=== PATIENT | female | born 1940 | race Caucasian/White ===

== ENCOUNTER 2019-05-05 14:56 | Emergency (ER) | payer MEDICARE ==
[2019-05-05] MEDS ORDERED: XYLOCAINE 1%/Epi 1:100000 MDV 20 ML IJ ONE (14:57)
[2019-05-05] MEDS ORDERED: Sodium Chloride 0.9% 1000 ML 1,000 ML IV ONE (14:57)
[2019-05-05] MEDS ORDERED: Zofran 4 MG/2 ML VIAL ONE (15:07)
[2019-05-05] MEDS ORDERED: Zofran 4 MG/2 ML VIAL IV ONE (15:14)
[2019-05-05 15:48] LABS: INR 1.06 (0.8-3.0)
[2019-05-05 15:51] LABS: ALBUMIN 4.4 g/dL (3.5-5.0); ANION GAP 16.2 MEQ/L (5-15); BILIRUBIN,TOTAL 0.5 mg/dL (0.2-1.3); Calcium 10.4 mg/dL (8.4-10.2); Creatinine 1 1.27 mg/dL (0.52-1.04); Potassium 4.2 mmol/L (3.5-5.1); Total Protein 7.5 g/dL (6.3-8.2)
[2019-05-05 15:57] LABS: BASOPHIL % 5.6 % (0.0-0.4); Basophil (Absolute #) 0.48 (0-0.4); Eosinophil % 7.5 % (0.00-5.0); Eosinophil (Absolute #) 0.64 (0-0.5); Granulocyte Absolute (ANC) 3.18 (1.4-6.9); Hematocrit 42.4 % (35-47); Hemoglobin 13.3 gm/dl (12.0-16.0); Lymphocyte (Absolute #) 4.24 (1.0-4.6); Lymphocytes % 49.4 % (24.0-44.0); Mean Cell Volume 86.9 fl (78-100); Mean Corpuscular Hemoglobin 27.3 pg (26-32); Mean Corpuscular Hgb Concent. 31.4 g/dl (32-36); Mean Platelet Volume 10.2 fl (6-9.5); Monocyte (Absolute #) 0.04 (0.0-1.3); Monocytes % 0.5 % (0.0-12.0); Platelet Count 245 K/mm3 (150-450); Red Blood Count 4.88 M/mm3 (4.1-5.4); Red Cell Distribution Width 14.3 % (11.5-14.0); White Blood Count 8.6 K/mm3 (4.0-10.5)
[2019-05-05] MEDS ORDERED: Sodium Chloride 0.9% 1000 ML 1,000 ML ONE (15:58)
[2019-05-05] MEDS ORDERED: Sodium Chloride 0.9% 1000 ML 1,000 ML IV STA (16:25)
--- NOTE | 2019-05-05 16:42 | XRAY ---
Indication: Syncope. No known injury. Multiple contiguous axial images obtained through the head without contrast. Comparison: None Normal age-appropriate global atrophy. No acute intracranial hemorrhage, abnormal extra-axial fluid collection, or mass effect. Fourth ventricle is midline without hydrocephalus. Fernandez-white matter differentiation preserved. Bony calvarium intact. Visualized paranasal sinuses and mastoid air cells are clear. Impression: Normal aging brain. No acute intracranial abnormalities. CTDI 67.00
[2019-05-05 16:58] VITALS: BP 171/74
[2019-05-05 18:06] VITALS: PULSE 67; O2SAT 98
--- NOTE | 2019-05-05 18:15 | ERPHSYRPT ---
- History of Present Illness Source: patient, family Exam Limitations: clinical condition Patient Subjective Stated Complaint: pt presented to ED from [facility] after code blue was called. Pt stated she was cleaning carpets and cut her right great toe. laceration to right great toe with active bleeding noted. direct pressure being applied per staff. pulse palp above area Triage Nursing Assessment: Pt lethargic, post syncopal episode, eyes closed but responsive to questions A/O. speech clear. skin pale, moist. right great toe with laceration, direct pressure being applied per OR staff Dee Dee Arana. Physician History: Pt is a 78 y/o female that presented to acute care clinic, with laceration of the big R toe. The pt was cleaning her home, and she bumped her toe on something that caused her to bleed. A code blue was called, as pt syncopized. On arrival to scene, pt was breathing and had a pulse. She was able to responde. Her foot on R was in a big zip lock that was full with blood. Pt was transferred to the ER. Method of Injury: direct blow Occurred: just prior to arrival Where Injury Occurred: home Loss of Consciousness: brief (seconds) Pain Location: toe(s) (big toe on the R) Severity of Pain-Max: moderate Severity of Pain-Current: moderate Modifying Factors: Improves With: nothing Associated Symptoms: denies symptoms Allergies/Adverse Reactions: No Known Drug Allergies Allergy (Verified 05/05/19 15:13) Home Medications: Amlodipine Besylate [Norvasc] 2.5 mg PO DAILY 05/05/19 [History] Aspirin 81 mg PO DAILY 05/05/19 [History] Cyclobenzaprine HCl 10 mg [Cyclobenzaprine 10 MG] 10 mg PO TIDPRN [History] Latanoprost 1 drop OP HS 05/05/19 [History] Levothyroxine Sodium 50 Mcg [Synthroid 50 Mcg] 50 mcg PO DAILY 05/05/19 [ History] Lovastatin [Altoprev] 40 mg PO DAILY 05/05/19 [History] Metoprolol Succinate 100 mg [Toprol Xl 100 MG] 100 mg PO DAILY 05/05/19 [ History] Omeprazole 20 mg PO DAILY 05/05/19 [History] Hx Tetanus, Diphtheria Vaccination/Date Given: No Immunizations Up to Date: Yes - Review of Systems Constitutional: Other (Pt syncopized on the scene. She is A&O now.) Eyes: No Symptoms Ears, Nose, & Throat: No Symptoms Respiratory: No Cough, No Dyspnea Cardiac: No Chest Pain, No Edema, No Syncope Abdominal/Gastrointestinal: No Abdominal Pain, No Nausea, No Vomiting, No Diarrhea Genitourinary Symptoms: No Dysuria Musculoskeletal: Other (large laceration on R big toe.), No Back Pain, No Neck Pain Skin: No Rash Neurological: No Dizziness, No Focal Weakness, No Sensory Changes - Past Medical History Pertinent Past Medical History: Yes Neurological History: No Pertinent History ENT History: No Pertinent History Cardiac History: Hypertension Respiratory History: No Pertinent History Endocrine Medical History: Hypothyroidism Musculoskeletal History: No Pertinent History GI Medical History: No Pertinent History History: No Pertinent History Psycho-Social History: No Pertinent History Female Reproductive Disorders: No Pertinent History - Past Surgical History Past Surgical History: No Neuro Surgical History: No Pertinent History Cardiac: No Pertinent History Respiratory: No Pertinent History Gastrointestinal: No Pertinent History Genitourinary: No Pertinent History Musculoskeletal: No Pertinent History Female Surgical History: No Pertinent History - Social History Smoking Status: Never smoker Exposure to second hand smoke: No Drug Use: none Patient Lives Alone: No - Female History Hx Now: No Physical Exam - Nursing Vital Signs Nursing Vital Signs: Initial Vital Signs Temperature 97.4 F 05/05/19 14:56 Pulse Rate 80 05/05/19 14:56 Respiratory Rate 25 H 05/05/19 14:56 Blood Pressure 136/64 05/05/19 14:56 O2 Sat by Pulse Oximetry 98 05/05/19 14:56 Pain Scale Pain Intensity 0 - [place] Coma Score Best Eye Response ([place]): (4) open spontaneously Best Verbal Response ([place]): (5) oriented Best Motor Response ([place]): (6) obeys commands Aimee Total: 15 - Physical Exam General Appearance: no apparent distress, alert Head Injury: no evidence of injury ENT Exam: airway nml, nml ext.inspection, No evidence of ENT injury Neck Exam: supple, trachea midline, normal inspection, c-collar in place, No tenderness Respiratory/Chest Exam: normal breath sounds, No chest tenderness, No respiratory distress, No ecchymosis, No crepitus Cardiovascular Exam: normal heart sounds, regular rate/rhythm, normal peripheral pulses, No murmur, No edema, No JVD Gastrointestinal Exam: soft, No tenderness, No distention, No guarding Back Exam: normal inspection, normal range of motion, No vertebral tenderness Extremity Exam: other (Large laceration with arterial bleed of the R big toe.) Neurologic Exam: alert, oriented x 3, cooperative, rim turning finisher II-XII nml as tested, sensation nml, No motor deficits Skin Exam: laceration (with arterial bleed of the R big toe.) SpO2 Interpretation: normal SpO2: 98 O2 Delivery: Room Air Procedures - Laceration/Wound Repair Right Toe Wound Location: Right, foot (big toe) Wound Length (cm): 3 Wound's Depth, Shape: into muscle, linear Wound Explored: contaminated Irrigated: Yes Hibiclens Prep: Yes Anesthesia: local, 1% lidocaine w/ Epi Volume Anesthetic (ccs): 3 Wound Debrided: minimal Wound Repaired With: Gerard Number of Sutures: 9 Layer Closure?: No Sterile Dressing Applied?: No Splint Applied?: No Sling Applied?: No - Course Nursing assessment & vital signs reviewed: Yes EKG Interpreted by Me: RATE (62 bpm), Sinus Rhythm, NORMAL QRS, NORMAL ST-T - CT Exams Head CT Interpretation: Negative (normal aging brain) Ordered Tests: Active Orders 24 hr Category Date Time Status EKG-ER Only STAT Care 05/05/19 15:40 Active IV Insertion STAT Care 05/05/19 15:43 Active IV Insertion-2nd Peripheral STAT Care 05/05/19 15:43 Active HEAD WITHOUT CONTRAST [CT] Stat Exams 05/05/19 15:41 Completed CBC W DIFF Stat Lab 05/05/19 14:56 Completed CMP Stat Lab 05/05/19 14:56 Completed PT INR [PROTIME WITH INR] Stat Lab 05/05/19 14:56 Completed TROPONIN Q3H Lab 05/05/19 14:56 Completed TROPONIN Q3H Lab 05/05/19 18:45 Ordered TROPONIN Q3H Lab 05/05/19 21:45 Ordered Standby STAT RT 05/05/19 15:35 Completed Medication Summary Discontinued Medications Generic Name Dose Route Start Last Admin Trade Name Freq PRN Reason Stop Dose Admin Sodium Chloride Confirm 05/05/19 15:58 Sodium Chloride 0.9% 1000 Ml Administered 05/05/19 15:59 Dose 1,000 mls @ ud .ROUTE .STK-MED ONE Sodium Chloride 1,000 mls @ 999 mls/hr 05/05/19 16:25 05/05/19 16:11 Sodium Chloride 0.9% 1000 Ml IV 05/05/19 17:25 Infused .Q1H1M STA Infusion Ondansetron HCl Confirm 05/05/19 15:07 Zofran 4 Mg/2 Ml Vial Administered 05/05/19 15:08 Dose 4 mg .ROUTE .STK-MED ONE Ondansetron HCl 4 mg 05/05/19 15:14 05/05/19 15:18 Zofran 4 Mg/2 Ml Vial IV 05/05/19 15:15 4 mg STAT ONE Administration Lab/Rad Data: Laboratory Result Diagrams 05/05/19 14:56 05/05/19 14:56 Laboratory Results 05/05/19 05/05/19 05/05/19 Range/Units 14:56 14:56 14:56 WBC (4.0-10.5) K/mm3 RBC (4.1-5.4) M/mm3 Hgb (12.0-16.0) gm/dl Hct (35-47) % MCV (78-100) fl MCH (26-32) pg MCHC (32-36) g/dl RDW (11.5-14.0) % Plt Count (150-450) K/mm3 MPV (6-9.5) fl Gran % (36.0-66.0) % Eos # (Auto) (0-0.5) Absolute Lymphs (auto) (1.0-4.6) Absolute Monos (auto) (0.0-1.3) Lymphocytes % (24.0-44.0) % Monocytes % (0.0-12.0) % Eosinophils % (0.00-5.0) % Basophils % (0.0-0.4) % Absolute Granulocytes (1.4-6.9) Basophils # (0-0.4) PT 12.0 (9.95-12.35) SECONDS INR 1.06 (0.8-3.0) Sodium 137 (137-145) mmol/L Potassium 4.2 (3.5-5.1) mmol/L Chloride 105 (98-107) mmol/L Carbon Dioxide 20 L (22-30) mmol/L Anion Gap 16.2 H (5-15) MEQ/L BUN 21 H (7-17) mg/dL Creatinine 1.27 H (0.52-1.04) mg/dL Estimated GFR 43.5 ML/MIN Glucose 144 H (74-106) mg/dL Calcium 10.4 H (8.4-10.2) mg/dL Total Bilirubin 0.50 (0.2-1.3) mg/dL AST 25 (14-36) U/L ALT 18 (0-35) U/L Alkaline Phosphatase 78 (38-126) U/L Troponin I < 0.012 (0.000-0.034) ng/mL Serum Total Protein 7.5 (6.3-8.2) g/dL Albumin 4.4 (3.5-5.0) g/dL 05/05/19 Range/Units 14:56 WBC 8.6 (4.0-10.5) K/mm3 RBC 4.88 (4.1-5.4) M/mm3 Hgb 13.3 (12.0-16.0) gm/dl Hct 42.4 (35-47) % MCV 86.9 (78-100) fl MCH 27.3 (26-32) pg MCHC 31.4 L (32-36) g/dl RDW 14.3 H (11.5-14.0) % Plt Count 245 (150-450) K/mm3 MPV 10.2 H (6-9.5) fl Gran % 37.0 (36.0-66.0) % Eos # (Auto) 0.64 H (0-0.5) Absolute Lymphs (auto) 4.24 (1.0-4.6) Absolute Monos (auto) 0.04 (0.0-1.3) Lymphocytes % 49.4 H (24.0-44.0) % Monocytes % 0.5 (0.0-12.0) % Eosinophils % 7.5 H (0.00-5.0) % Basophils % 5.6 (0.0-0.4) % Absolute Granulocytes 3.18 (1.4-6.9) Basophils # 0.48 H (0-0.4) PT (9.95-12.35) SECONDS INR (0.8-3.0) Sodium (137-145) mmol/L Potassium (3.5-5.1) mmol/L Chloride (98-107) mmol/L Carbon Dioxide (22-30) mmol/L Anion Gap (5-15) MEQ/L BUN (7-17) mg/dL Creatinine (0.52-1.04) mg/dL Estimated GFR ML/MIN Glucose (74-106) mg/dL Calcium (8.4-10.2) mg/dL Total Bilirubin (0.2-1.3) mg/dL AST (14-36) U/L ALT (0-35) U/L Alkaline Phosphatase (38-126) U/L Troponin I (0.000-0.034) ng/mL Serum Total Protein (6.3-8.2) g/dL Albumin (3.5-5.0) g/dL - Progress Progress: improved Progress Note: 05/05/19 18:20 Pt was seen in the ER. A tourniquet was placed around pt toe, and bleeding stopped. The toe was cleaned well with hibiclence and saline. I numbed pt's toe, and placed gerard in the toe. Pt tolerated procedure well. I removed the tourniquet and watched for bleeding. There was no bleeding anymore. Labs were taken that showed Hgb of 13.3. IVF were given to the pt. CT of head was negative. I contacted Dr Elder THAT IS A VASCULAR SURGEON IN [facility], AND HE STATED, THAT PT IS SAFE FOR D/C AND SHOULD F/U WITH HER pcp FOR GERARD REMOVAL. If her PCP needs assistance, he will be happy to see pt in his office. Pt will be d/c to home on Augmentin. She should f/u with PCP for gerard removal in 10 days. Pt should avoid ASA, and NSAIDs. She should avoid strenuous activity. Discussed with : Suyapa Will see patient in: office Counseled pt/family regarding: need for follow-up - Departure Departure Disposition: Home Clinical Impression: Syncope and collapse Condition: Stable Critical Care Time: Yes Critical Care Time(excluding separately billable procedures): 30-74 minutes Referrals: SEYMOUR COSBY [Primary Care Provider] - Additional Instructions: Keep wound clean and dry. Take ABX as ordered. Avoid NSAIDs, and strenuous activity. F/U with PCP to remove gerard in 10 days. Prescriptions: Amoxicillin/Potassium Clav [Augmentin 875-125 Tablet] 1 each PO BID #20 tablet Tramadol HCl 50 mg [Ultram 50 mg] 50 - 100 mg PO Q4-6HPRN PRN #30 tablet PRN Reason: Pain
[2019-05-05] MEDS ORDERED: BACIGUENT PACKET TP ONE (18:37)
[2019-05-05] MEDS ORDERED: BACIGUENT PACKET ONE (18:40)
== END 2019-05-05 18:52 | disposition home or self-care (01) ==
LOC: ED 14:56
DX: R55 Syncope and collapse (principal); S91.111A Laceration without foreign body of right great toe without damage to nail, initial encounter; W26.9XXA Contact with unspecified sharp object(s), initial encounter; Y93.E9 Activity, other interior property and clothing maintenance; Y92.099 Unspecified place in other non-institutional residence as the place of occurrence of the external cause
CPT/HCPCS: 36000; 36415; 70450; 80053; 84484; 85025; 85610; 93005; 94799; 96360; 96374; 99284; J2405; A9270-GY

== ENCOUNTER 2020-12-14 09:41 | Day surgery (SDC) | payer MEDICARE ==
[~2020-12-14 09:41] MED LIST: Lactated Ringers 1,000 ML IV ONE; Sensorcaine 0.25% 10 ML ONE
[2020-12-14] MEDS ORDERED: Versed 2 MG/2 ML Injection ONE (09:55)
[2020-12-14] MEDS ORDERED: Zemuron 100 MG/10 ML ONE (09:55)
[2020-12-14] MEDS ORDERED: SUBLIMAZE 250 MCG/5 ML ONE (09:55)
[2020-12-14] MEDS ORDERED: DIPRIVAN 200 MG/20 ML IV ONE (09:55)
[2020-12-14] MEDS ORDERED: Lactated Ringers 1,000 ML IV SCH (10:30)
[2020-12-14] MEDS ORDERED: Lactated Ringers 1,000 ML IV ONE (10:32)
[2020-12-14] MEDS ORDERED: MEFOXIN 2 GM PREMIX** 2 GM/50 ML ML IV ONE (10:32)
[2020-12-14] MEDS ORDERED: MEFOXIN 2 GM PREMIX** 2 GM/50 ML ML IV SCH (11:00)
[2020-12-14] MEDS ORDERED: BREVIBLOC 100 MG/10 ML IV ONE (12:17)
[2020-12-14] MEDS ORDERED: Zofran 4 MG/2 ML VIAL ONE ×2 (12:54→13:35)
--- NOTE | 2020-12-14 12:54 | OP ---
SURGERY DATE/TIME: 12/14/2020 1152 PREOPERATIVE DIAGNOSIS: Gallbladder dyskinesia/sludge. POSTOPERATIVE DIAGNOSIS: Gallbladder dyskinesia/sludge/cholesterolosis. PROCEDURE: Laparoscopic cholecystectomy. SURGEON: Dr. Maikel Mancuso. VAULT MECHANIC: DORIS Rodriguez. ANESTHESIA: General. ESTIMATED BLOOD LOSS: None. DRAINS: None. COMPLICATIONS: None. CONDITION: Stable. INDICATIONS: A patient requiring cholecystectomy. DESCRIPTION OF PROCEDURE AND FINDINGS: Taken to surgery. General anesthetic, routine prep and drape. Veress needle inserted. Opening pressure of 1, insufflating pressure 14. Four - 5's. Good visualization. Cystic duct defined. Common hepatic and common bile were both visible in this lady. [place] was clear. Cystic duct totally clear. Cystic artery totally clear. These were both triply clipped and transected. Clips noted across and well approximated. Gallbladder rolled out of gallbladder fossa. The gallbladder delivered through the umbilical port with slight widening. Hole closure device with 0 Vicryl. No spillage occurred. The field was totally dry. CO2 was exsufflated. Skin closed with 4-0 Vicryl and Steri-Strips. The patient tolerated the procedure satisfactorily.
[2020-12-14] MEDS ORDERED: MORPHINE SULFATE 10 MG/ML ONE (12:55)
[2020-12-14] MEDS ORDERED: SUBLIMAZE 100 MCG/2 ML ONE (13:21)
[2020-12-14 14:44] VITALS: BP 169/80; PULSE 79; O2SAT 97
== END 2020-12-14 14:30 | disposition home or self-care (01) ==
LOC: SDC 09:41
PROVIDERS: ATTEND Surgery
DX: K80.10 Calculus of gallbladder with chronic cholecystitis without obstruction (principal); K82.8 Other specified diseases of gallbladder
CPT/HCPCS: 99100; J0694; J2250; J2270; J2405; J2704; J3010

== ENCOUNTER 2022-04-15 06:06 | Day surgery (SDC) | payer MEDICARE ==
[2022-04-15] MEDS ORDERED: Lactated Ringers 1,000 ML IV SCH (06:30)
[2022-04-15] MEDS ORDERED: Xylocaine-Mpf 2% 5 Ml Vial ONE (07:38)
[2022-04-15] MEDS ORDERED: DIPRIVAN 200 MG/20 ML IV ONE (07:38)
[2022-04-15 08:37] VITALS: O2SAT 99
[2022-04-15 09:06] VITALS: BP 138/74; PULSE 72
--- NOTE | 2022-04-15 11:21 | OP ---
SURGERY DATE/TIME: 04/15/2022 0735 PREOPERATIVE DIAGNOSIS: Positive Cologuard test. POSTOPERATIVE DIAGNOSIS: Mild sigmoid diverticulosis otherwise normal colon. PROCEDURE: Colonoscopy. SURGEON: Dr. Clint Dale. ANESTHESIA: MAC. Medications given by anesthesia department. HISTORY: The patient is a 81-year-old white female who has never had a colonoscopy before. She had a positive Cologuard tests and now presents for evaluation. The patient was appraised of the risks of the procedure including the risk of perforation, phlebitis, untoward reaction to medication, bleeding and missed lesions. The patient verbalized her understanding and desired to have the procedure performed. DESCRIPTION OF PROCEDURE: The patient was given the medications by the anesthesia department. She had continuous pulse oximetry, ECG monitoring, intermittent blood pressure monitoring and tidal CO2 monitoring during the examination. She was placed in the left lateral decubitus position. A digital rectal examination was performed and revealed normal anal sphincter tone and no masses. The flexible Olympus pediatric colonoscope was used to intubate the rectum. A view of the colon was developed sequentially to the cecum. Upon insertion and withdrawal was noted somewhat narrowed sigmoid colon and there were noted to be scattered diverticula but no other mucosal lesions were encountered. The scope was removed from the patient who tolerated the procedure well and was sent back to OP recovery in good condition. The prep was noted to be good.
== END 2022-04-15 09:15 | disposition home or self-care (01) ==
LOC: SDC 06:06
PROVIDERS: ATTEND Family Medicine
DX: K57.30 Diverticulosis of large intestine without perforation or abscess without bleeding (principal); R19.5 Other fecal abnormalities
CPT/HCPCS: J2704

== ENCOUNTER 2024-08-29 20:16 | Inpatient (IN) | payer MEDICARE ==
--- NOTE | 2024-08-29 20:46 | ERPHSYRPT ---
- History of Present Illness Source: patient Exam Limitations: no limitations Patient Subjective Stated Complaint: c/o of left medial hip pain Triage Nursing Assessment: Patient brought to ED by ambulance with complaint of fall at home. Patient stated she was standing at the sink and suddenly got dizzy and fell. Complains of 8/10 left medial hip pain. patient states the pain doesn't radiate and only hurts with movement. patient hit left side of head on table during the fall but denies LOC. Bruising and swelling noted on left side of head. AxOx4, pulses anshul;, skin w/n/d, hypertensive, brought in by stretcher, doesn't appear to be in any distress at this time. Physician History: Patient got lightheaded and fell. She said she did not have any palpitations. She hit her head and has some hip pain now. She had been standing at the sink for prolonged period of time washing dishes. Presume she had her knees locked. She was there for at least 5 minutes and said that she did not move. 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 There is no syncope. She did hit her head when she fell. She did not fall yesterday when she got lightheaded. There was a discontinuation of one of her blood pressure medicines about a month ago because she was dropping her pressures. Wondering if that is what is going on again today. It did seem like today she probably got orthostatic possibly from standing with extended legs for prolonged period of time.There was no syncope and no loss of consciousness when she hit her head. Pain is in the left hip. Movement of the hip makes it a little worse. It is more on the inside of the thigh actually than the actual hip joint. She also has a contusion on her left temporal area. Allergies/Adverse Reactions: No Known Drug Allergies Allergy (Verified 08/29/24 20:39) Home Medications: Amlodipine Besylate [Norvasc] 2.5 mg PO HS 12/11/20 [History] Alendronate Sodium 70 mg [Fosamax 70 MG] 70 mg PO WEEKLY 04/11/22 [History] Latanoprost [Xalatan] 1 ml OP HS 04/11/22 [History] Levothyroxine Sodium 50 mcg PO DAILY 04/11/22 [History] Gabapentin 300 mg PO DAILY 08/29/24 [History] Rosuvastatin Calcium 10 mg PO DAILY 08/29/24 [History] Vit C/E/Zn/Coppr/Lutein/Zeaxan [Preservision Areds 2 Chew Tab] 1 each PO DAILY 08/29/24 [History] Hx Tetanus, Diphtheria Vaccination/Date Given: No (unknown) Hx Influenza Vaccination/Date Given: Yes Hx Pneumococcal Vaccination/Date Given: Yes Travel Risk - International Travel Have you traveled outside of the country in past 3 weeks: No - Emerging Infectious Disease Are you exhibiting symptoms associated with any current EIDs: No - Review of Systems Constitutional: No Symptoms Eyes: No Symptoms Ears, Nose, & Throat: No Symptoms Respiratory: No Symptoms Cardiac: No Chest Pain, No Palpitations, No Syncope Abdominal/Gastrointestinal: No Symptoms, Abdominal Pain Skin: No Symptoms Neurological: Dizziness Psychological: No Symptoms - Past Medical History Pertinent Past Medical History: Yes Neurological History: No Pertinent History ENT History: No Pertinent History Cardiac History: High Cholesterol, Hypertension Respiratory History: No Pertinent History Endocrine Medical History: Hypothyroidism Musculoskeletal History: Fractures GI Medical History: No Pertinent History History: No Pertinent History Psycho-Social History: No Pertinent History Female Reproductive Disorders: No Pertinent History Other Medical History: Pelvis fracture and knee cap - Past Surgical History Past Surgical History: Yes Neuro Surgical History: No Pertinent History Cardiac: No Pertinent History Respiratory: No Pertinent History Gastrointestinal: Cholecystectomy Genitourinary: No Pertinent History Musculoskeletal: No Pertinent History Female Surgical History: No Pertinent History Other Surgical History: COLONOSCPY - Social History Smoking Status: Never smoker Exposure to second hand smoke: No Drug Use: none Patient Lives Alone: No - Social Determinants of Health Will the patient participate in the screening: Yes Do you worry about a steady place to live?: No Do you have any problems with any of the following?: No known problems In the past 12 months,have you had to go without utilities?: No Transportation Issues: No Has anyone in your support network made you feel unsafe?: No Have you or anyone in your house had to go without enough: No - Nursing Vital Signs Nursing Vital Signs: Initial Vital Signs Temperature 97.8 F 08/29/24 20:18 Pulse Rate 87 08/29/24 20:18 Respiratory Rate 19 08/29/24 20:18 Blood Pressure 179/89 11/10/24 20:18 O2 Sat by Pulse Oximetry 97 08/29/24 20:18 Pain Scale Pain Intensity 5 - [place] Coma Score Best Eye Response ([place]): (4) open spontaneously Best Verbal Response ([place]): (5) oriented Best Motor Response (Aimee): (6) obeys commands Aimee Total: 15 - Physical Exam General Appearance: no apparent distress Head Injury: contusions (Left frontal temporal areaThere was no crepitus or anything in the bones. The skull appeared to be intact) Eye Exam: PERRL/EOMI, eyes nml inspection ENT Exam: airway nml, evidence of ENT injury Neck Exam: supple, trachea midline, full range of motion, normal alignment, normal inspection Respiratory/Chest Exam: normal breath sounds, No chest tenderness, No respiratory distress Cardiovascular Exam: normal heart sounds, regular rate/rhythm Gastrointestinal Exam: soft, normal bowel sounds, No tenderness Back Exam: normal inspection Extremity Exam: capillary refill >3 sec, other (Patient had some tenderness in the left upper inner thigh. Movement of the hip joint made it worse) Neurologic Exam: alert, oriented x 3, cooperative Skin Exam: normal color, warm, dry, No rash SpO2 Interpretation: normal SpO2: 97 - Course Nursing assessment & vital signs reviewed: Yes EKG Interpreted by Me: RATE, Sinus Rhythm, NORMAL INTERVALS, NORMAL QRS Ordered Tests: Active Orders 24 hr Category Date Time Status EKG-ER Only STAT Care 08/29/24 20:37 Active HEAD WITHOUT CONTRAST [CT] Stat Exams 08/29/24 20:36 Completed HIP UNI (2V) INCL PEL IF DONE Stat Exams 08/29/24 22:19 Ordered PELVIS (1 OR 2 VIEWS) Stat Exams 08/29/24 22:19 Ordered PELVIS WITHOUT CONTRAST [CT] Stat Exams 08/29/24 20:36 Completed CBC W DIFF Stat Lab 08/29/24 20:53 Completed CMP Stat Lab 08/29/24 20:53 Completed Medication Summary Discontinued Medications Generic Name Dose Route Start Last Admin Trade Name Freq PRN Reason Stop Dose Admin Fentanyl Citrate 50 mcg 08/29/24 21:10 08/29/24 21:37 Fentanyl Citrate 100 Mcg/2 Ml* Vial IV 08/29/24 21:11 50 mcg STAT ONE Administration Fentanyl Citrate Confirm 08/29/24 21:35 Fentanyl Citrate 100 Mcg/2 Ml* Vial Administered 08/29/24 21:36 Dose 100 mcg .ROUTE .STK-MED ONE Hydromorphone HCl 1 mg 08/29/24 22:22 08/29/24 22:29 Hydromorphone 1 Mg/1ml Inj IV 08/29/24 22:23 1 mg STAT ONE Administration Hydromorphone HCl Confirm 08/29/24 22:27 Hydromorphone 1 Mg/1ml Inj Administered 08/29/24 22:28 Dose 1 mg .ROUTE .STK-MED ONE Lab/Rad Data: Laboratory Result Diagrams 08/29/24 20:53 08/29/24 20:53 Laboratory Results 08/29/24 08/29/24 Range/Units 20:53 20:53 WBC 8.4 (3.98-10.04) x10^3/uL RBC 4.99 (3.93-5.22) x10^6/uL Hgb 11.8 (11.2-15.7) g/dL Hct 39.8 (34.1-44.9) % MCV 79.8 (79.4-94.8) fL MCH 23.6 L (25.6-32.2) pg MCHC 29.6 L (32.2-35.5) g/dL RDW 24.8 H (11.7-14.4) % Plt Count 192 (182-369) x10^3/uL MPV 8.9 L (9.4-12.3) fL Gran % 85.0 H (34.0-71.1) % Immature Gran % (Auto) 0.5 H (0.001-0.429) % Nucleat RBC Rel Count 0.0 (0.00-0.2) % Eos # (Auto) 0.06 (0.04-0.36) x10^3/uL Immature Gran # (Auto) 0.04 H (0.001-0.031) x10^3u/L Absolute Lymphs (auto) 0.65 L (1.18-3.74) x10^3/uL Absolute Monos (auto) 0.46 (0.24-0.86) x10^3/uL Absolute Nucleated RBC 0.00 (0.00-0.012) x10^3u/L Lymphocytes % 7.8 L (19.3-51.7) % Monocytes % 5.5 (4.7-12.5) % Eosinophils % 0.7 (0.7-5.8) % Basophils % 0.5 (0.1-1.2) % Absolute Granulocytes 7.10 H (1.56-6.13) x10^3/uL Basophils # 0.04 (0.01-0.08) x10^3/uL Sodium 139 (135-145) mmol/L Potassium 3.7 (3.5-5.1) mmol/L Chloride 101 (98-107) mmol/L Carbon Dioxide 32 H (22-30) mmol/L Anion Gap 9.8 (5-15) MEQ/L BUN 13 (7-17) mg/dL Creatinine 0.90 (0.52-1.04) mg/dL Estimated GFR 63.8 ML/MIN Glucose 114 H (74-106) mg/dL Calcium 9.4 (8.4-10.2) mg/dL Total Bilirubin 0.30 (0.2-1.3) mg/dL AST 29 (14-36) U/L ALT 19 (0-35) U/L Alkaline Phosphatase 81 (38-126) U/L Serum Total Protein 6.8 (6.3-8.2) g/dL Albumin 4.0 (3.5-5.0) g/dL Slides for Path Review YES - Progress Progress: unchanged Progress Note: Patient was stable throughout stay. She did not have any arrhythmias that would be causing his syncope. She could have gotten orthostatic or possibly had a vasovagal type episode. In any event her chemistries all look good CBC showed no anemia. Her head CT showed no intracranial findings however she did have a impacted femoral neck fracture. I spoke with Dr. Abdul as well as Dr. Dozier. We are going to admit the patient. 08/29/24 22:32 Discussed with DrJohn: Other (Dr. Abdul and Dr. Dozier) Will see patient in: hospital (observation) Medical Desision Making - Independent Historian Additional History obtained from: Child - Discussion of managment Care discussed with:: specialist (Dr. Abdul) Reviewed:: Test results, Need for additional workup Agreed on:: Treatment plan, place in obs Will see patient: in hospital - Departure Departure Disposition: Observation Clinical Impression: Near syncope, Hip fracture, left Condition: Stable Critical Care Time: No Referrals: SEYMOUR COSBY [Primary Care Provider] - Follow up/PCP as directed
[2024-08-29 20:54] LABS: Hemoglobin 11.8 g/dL (11.2-15.7); Red Blood Count 4.99 x10^6/uL (3.93-5.22); White Blood Count 8.4 x10^3/uL (3.98-10.04)
[2024-08-29 20:55] LABS: BASOPHIL % 0.5 % (0.1-1.2); Basophil (Absolute #) 0.04 x10^3/uL (0.01-0.08); Eosinophil % 0.7 % (0.7-5.8); Eosinophil (Absolute #) 0.06 x10^3/uL (0.04-0.36); Hematocrit 39.8 % (34.1-44.9); IMMATURE GRAN # 0.04 x10^3u/L (0.001-0.031); IMMATURE GRAN % 0.5 % (0.001-0.429); Lymphocyte (Absolute #) 0.65 x10^3/uL (1.18-3.74); Lymphocytes % 7.8 % (19.3-51.7); Mean Cell Volume 79.8 fL (79.4-94.8); Mean Corpuscular Hemoglobin 23.6 pg (25.6-32.2); Mean Corpuscular Hgb Concent. 29.6 g/dL (32.2-35.5); Mean Platelet Volume 8.9 fL (9.4-12.3); Monocyte (Absolute #) 0.46 x10^3/uL (0.24-0.86); Monocytes % 5.5 % (4.7-12.5); Platelet Count 192 x10^3/uL (182-369); Red Cell Distribution Width 24.8 % (11.7-14.4)
[2024-08-29 21:06] LABS: ANION GAP 9.8 MEQ/L (5-15); BILIRUBIN,TOTAL 0.3 mg/dL (0.2-1.3); Calcium 9.4 mg/dL (8.4-10.2); Creatinine 1 0.9 mg/dL (0.52-1.04); EST GLOMERULAR FILTRATION RATE 63.8 ML/MIN; Potassium 3.7 mmol/L (3.5-5.1); Total Protein 6.8 g/dL (6.3-8.2)
[2024-08-29] MEDS ORDERED: SUBLIMAZE 100 MCG/2 ML ONE (21:35)
[2024-08-29] MEDS: SUBLIMAZE 100 MCG/2 ML IV ONE (21:37)
--- NOTE | 2024-08-29 21:37 | XRAY ---
CLINICAL HISTORY: hip pain post fall COMPARISON: None. TECHNIQUE: An axial non-contrast CT scan of the brain was performed from the skull base to the high parietal region. One of the following dose-reduction techniques was utilized for this exam. Automated exposure control, adjustment of the mA and/or kV according to patient size, and use of iterative reconstruction. CT scan performed according to ALARA principles. FINDINGS: A small external calvarial soft tissue swelling in the left frontoparietal region without underlying fracture. A few tiny ill-defined [id number] areas are noted bilaterally in the subcortical and deep white matter, suggestive of microvascular ischemic changes. The ventricular system, cortical sulci, and basal cisterns are prominent and consistent with senile changes. The brain parenchyma shows a normal appearance. Fernandez-white matter differentiation is maintained. No midline shifts or deformity. No intracerebral or extra axial hematoma. Normal CT appearance of the posterior fossa structures namely the cerebellar hemispheres, brainstem, and cerebellar peduncles. The bony structures in the skull base are unremarkable. There are no definite calvarium fractures. Minimal to mild mucosal thickening involving the bilateral maxillary sinuses, the rest of the sinuses are within normal limits IMPRESSION: 1. A small external calvarial soft tissue swelling in the left frontoparietal region without underlying fracture. 2. There is no evidence of intracerebral hemorrhage or established infarction. 3. Microvascular white matter ischemic changes and senile changes. 4. Advised MRI brain if clinically desired for further evaluation. Electronically Signed by: Cassie Valdes MD. (08/29/2024 21:33:45 EST)
--- NOTE | 2024-08-29 22:01 | XRAY ---
CLINICAL HISTORY: hip pain post fall COMPARISON: No previous studies are available for comparison. TECHNIQUE: A CT scan of the pelvis was performed without the administration of intravenous contrast. Contiguous axial images were obtained from the iliac crests to the pubic symphysis. Coronal and sagittal reformatted images were also reviewed. One of the following dose-reduction techniques was utilized for this exam. Automated exposure control, adjustment of the mA and/or kV according to patient size, and use of iterative reconstruction. FINDINGS: Pelvic Bones: Displaced impacted fracture of the neck of the left femur with mild superior migration of the proximal femur. Old healed fractures of left superior and inferior pubic rami. Diffuse osteopenic changes noted. The visualized lower lumbar spine shows degenerative changes. Uterus: The uterus is normal in size and shape. Adnexa: No adnexal masses or cysts were identified. Bladder: The urinary bladder is adequately distended and appears normal. Rectum and Colon: The rectum and colon are within normal limits without evidence of wall thickening or abnormal enhancement. Pelvic Soft Tissues: Mild soft tissue thickening is seen around the acutely fractured site. IMPRESSION: 1. Displaced impacted fracture of the neck of the left femur with mild superior migration of the proximal femur. 2. Old healed fractures of left superior and inferior pubic rami. [facility] was called at [phone] at 08:49 PM PATIENT ACCOUNTS MANAGER, 08/29/2024 and the results were verbally communicated to Heriberto Dockery. Electronically Signed by: Cassie Valdes MD. (08/29/2024 21:56:24 EST)
[2024-08-29 22:06] LABS: Slide Review 1 YES
[2024-08-29] MEDS ORDERED: Hydromorphone 1 mg/ml Injection ONE (22:27)
[2024-08-29] MEDS: Hydromorphone 1 mg/ml Injection IV ONE (22:29)
--- NOTE | 2024-08-29 23:20 | PCM.HP ---
History of Present Illness - Chief Complaint Chief Complaint: near syncope hip fracture Date: 08/29/24 History of Present Illness: Ms. LAGUERRE is a 84 year old female with a past medical history significant for hypertension, hyperlipidemia and hypothyroidism who was at home washing dishes when she became weak and fell, hitting her head and landing on her left side. She did not lose consciousness but did complain of hip pain, and CT scan demonstrated a displaced left femoral neck fracture. 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 She reports having some low blood pressure readings last month and had her outpatient bp meds reduced. No fever/chills. No chest pain, shortness of breath or palpitations. No nausea, vomiting or diarrhea. No dysuria, hematuria or urgency. - Review of Systems Constitutional: Weakness, No Fever, No Chills Eyes: No Vision Changes Ears, Nose, & Throat: No Nose Discharge, No Sinus Drainage Respiratory: No Cough, No Orthopnea, No Short Of Breath Cardiac: No Chest Pain, No Edema, No Palpitations Abdominal/Gastrointestinal: No Abdominal Pain, No Nausea, No Vomiting, No Diarrhea Genitourinary Symptoms: No Dysuria, No Frequency, No Hematuria, No Urinary Retention Musculoskeletal: No Joint Pain Skin: No Rash Neurological: No Dizziness Psychological: No Suicidal Ideations Endocrine: No Polyuria, No Polydipsia Hematologic/Lymphatic: No Blood Clots Medications & Allergies Home Medications: Home Medication List Amlodipine Besylate [Norvasc] 2.5 mg PO HS 12/11/20 [History Confirmed 08/29/24] Alendronate Sodium 70 mg [Fosamax 70 MG] 70 mg PO WEEKLY 04/11/22 [History Confirmed 08/29/24] Latanoprost [Xalatan] 1 ml OP HS 04/11/22 [History Confirmed 08/29/24] Levothyroxine Sodium 50 mcg PO DAILY 04/11/22 [History Confirmed 08/29/24] Gabapentin 300 mg PO DAILY 08/29/24 [History Confirmed 08/29/24] Rosuvastatin Calcium 10 mg PO DAILY 08/29/24 [History Confirmed 08/29/24] Vit C/E/Zn/Coppr/Lutein/Zeaxan [Preservision Areds 2 Chew Tab] 1 each PO DAILY 08/29/24 [History Confirmed 08/29/24] Allergies/Adverse Reactions: Allergies Allergy/AdvReac Type Severity Reaction Status Date / Time No Known Drug Allergies Allergy Verified 08/29/24 20:39 - Past Medical History Past Medical History: Yes Neurological History: No Pertinent History ENT History: No Pertinent History Cardiac History: High Cholesterol, Hypertension Respiratory History: No Pertinent History Endocrine Medical History: Hypothyroidism Musculoskelatal History: Fractures GI Medical History: No Pertinent History History: No Pertinent History Pyscho-Social History: No Pertinent History Reproductive Disorders: No Pertinent History Comment: Pelvis fracture and knee cap - Past Surgical History Past Surgical History: Yes Neuro Surgical History: No Pertinent History Cardiac History: No Pertinent History Respiratory Surgery: No Pertinent History GI Surgical History: Cholecystectomy Genitourinary Surgical Hx: No Pertinent History Musculskeletal Surgical Hx: No Pertinent History Female Surgical History: No Pertinent History Other Surgical History: COLONOSCPY - Social History Smoking Status: Never smoker Exposure to second hand smoke: No Alcohol: None Drug Use: none - Social Determinants of Health Will the patient participate in the screening: Yes Do you worry about a steady place to live?: No Do you have any problems with any of the following?: No known problems In the past 12 months,have you had to go without utilities?: No Have you or anyone in your house had to go without enough: No Transportation Issues: No Has anyone in your support network made you feel unsafe?: No - Physical Exam Vital Signs: Vital Signs - 24 hr Temp Pulse Resp BP BP Pulse Ox 08/29/24 22:34 97 08/29/24 22:00 95 H 18 158/84 95 08/29/24 20:18 97.8 F 87 19 179/89 97 General Appearance: no apparent distress Neurologic Exam: alert, cooperative Ears, Nose, Throat Exam: dry mucous membranes Neck Exam: non-tender, supple Respiratory Exam: No respiratory distress Cardiovascular Exam: regular rate/rhythm Gastrointestinal/Abdomen Exam: soft, No tenderness Extremity Exam: No pedal edema, No swelling Skin Exam: normal color, No rash Results - Labs Lab/Micro Results: Lab Results-Last 24 Hours 08/29/24 08/29/24 Range/Units 20:53 20:53 WBC 8.4 (3.98-10.04) x10^3/uL RBC 4.99 (3.93-5.22) x10^6/uL Hgb 11.8 (11.2-15.7) g/dL Hct 39.8 (34.1-44.9) % MCV 79.8 (79.4-94.8) fL MCH 23.6 L (25.6-32.2) pg MCHC 29.6 L (32.2-35.5) g/dL RDW 24.8 H (11.7-14.4) % Plt Count 192 (182-369) x10^3/uL MPV 8.9 L (9.4-12.3) fL Gran % 85.0 H (34.0-71.1) % Immature Gran % (Auto) 0.5 H (0.001-0.429) % Nucleat RBC Rel Count 0.0 (0.00-0.2) % Eos # (Auto) 0.06 (0.04-0.36) x10^3/uL Immature Gran # (Auto) 0.04 H (0.001-0.031) x10^3u/L Absolute Lymphs (auto) 0.65 L (1.18-3.74) x10^3/uL Absolute Monos (auto) 0.46 (0.24-0.86) x10^3/uL Absolute Nucleated RBC 0.00 (0.00-0.012) x10^3u/L Lymphocytes % 7.8 L (19.3-51.7) % Monocytes % 5.5 (4.7-12.5) % Eosinophils % 0.7 (0.7-5.8) % Basophils % 0.5 (0.1-1.2) % Absolute Granulocytes 7.10 H (1.56-6.13) x10^3/uL Basophils # 0.04 (0.01-0.08) x10^3/uL Sodium 139 (135-145) mmol/L Potassium 3.7 (3.5-5.1) mmol/L Chloride 101 (98-107) mmol/L Carbon Dioxide 32 H (22-30) mmol/L Anion Gap 9.8 (5-15) MEQ/L BUN 13 (7-17) mg/dL Creatinine 0.90 (0.52-1.04) mg/dL Estimated GFR 63.8 ML/MIN Glucose 114 H (74-106) mg/dL Calcium 9.4 (8.4-10.2) mg/dL Total Bilirubin 0.30 (0.2-1.3) mg/dL AST 29 (14-36) U/L ALT 19 (0-35) U/L Alkaline Phosphatase 81 (38-126) U/L Serum Total Protein 6.8 (6.3-8.2) g/dL Albumin 4.0 (3.5-5.0) g/dL Slides for Path Review YES - Radiology Impressions Radiology Exams & Impressions: Radiology Procedures Category Date Time Status HEAD WITHOUT CONTRAST [CT] Stat Exams 08/29/24 20:36 Completed HIP UNI (2V) INCL PEL IF DONE Stat Exams 08/29/24 22:45 Ordered PELVIS (1 OR 2 VIEWS) Stat Exams 08/29/24 22:45 Ordered PELVIS WITHOUT CONTRAST [CT] Stat Exams 08/29/24 20:36 Completed Assessment/Plan (1) Syncope and collapse Current Visit: No Status: Acute Assessment & Plan: Status post fall due to weakness, CT head negative 1. Admit to inpatient status 2. Check orthostatics 3. IVFs 4. GI/DVT prophylaxis 5. Telemetry to monitor for arrhythmia Code(s): R55 - SYNCOPE AND COLLAPSE (2) Hip fracture, left Current Visit: Yes Status: Acute Qualifiers: Encounter type: initial encounter Fracture type: closed Qualified Code(s): S72.002A - Fracture of unspecified part of neck of left femur, initial encounter for closed fracture Assessment & Plan: Secondary to fall with L femoral neck fracture 1. NPO 2. Ortho eval for surgical repair 3. Bedrest for now Code(s): S72.002A - FRACTURE OF UNSP PART OF NECK OF LEFT FEMUR, INIT (3) Essential (primary) hypertension Current Visit: Yes Status: Acute Assessment & Plan: Episodes of hypotension reported a few months ago, resulting in bp med changes 1. Continue bp meds 2. Low Na diet 3. Monitor blood pressure readings 4. Check orthostatics Code(s): I10 - ESSENTIAL (PRIMARY) HYPERTENSION (4) Hypothyroidism Current Visit: Yes Status: Acute Assessment & Plan: Tolerating meds 1. Continue thyroid supplementation 2. Check TSH Code(s): E03.9 - HYPOTHYROIDISM, UNSPECIFIED Telemedicine Encounter - Telemedicine Encounter Telemedicine Encounter: "The entirety of this encounter was performed via Telemedicine" This visit was performed using real-time audio and video connection between my location and thepatients locationwith the assistance of a surrogateat the patients location. Written or verbal consent was obtained from the patient/guardian to perform this visit usingsynchronoustelemedicine technology. Any patient questions regarding the telemedicine interaction were answered.
[2024-08-29] MEDS ORDERED: TYLENOL 325 MG PO PRN (23:39)
[2024-08-29] MEDS ORDERED: DEXTROSE 5%-NORMAL SALINE 500 ML 500 ML IV SCH (23:45)
[2024-08-30] MEDS: Hydromorphone 1 mg/ml Injection IV PRN ×2 (03:15→16:14)
[2024-08-30] MEDS: Dextrose 5%-NS IV Solution 1000 ML 1,000 ML IV SCH (03:42)
[2024-08-30 04:34] LABS: Hematocrit 35.9 % (34.1-44.9); Hemoglobin 10.9 g/dL (11.2-15.7); Mean Cell Volume 78.4 fL (79.4-94.8); Mean Corpuscular Hemoglobin 23.8 pg (25.6-32.2); Mean Corpuscular Hgb Concent. 30.4 g/dL (32.2-35.5); Mean Platelet Volume 9.2 fL (9.4-12.3); Platelet Count 190 x10^3/uL (182-369); Red Blood Count 4.58 x10^6/uL (3.93-5.22); Red Cell Distribution Width 24.7 % (11.7-14.4); White Blood Count 6.6 x10^3/uL (3.98-10.04)
[2024-08-30 04:39] LABS: ALBUMIN 3.4 g/dL (3.5-5.0); ANION GAP 8.9 MEQ/L (5-15); BILIRUBIN,TOTAL 0.3 mg/dL (0.2-1.3); Calcium 8.9 mg/dL (8.4-10.2); Creatinine 1 0.78 mg/dL (0.52-1.04); EST GLOMERULAR FILTRATION RATE 75.8 ML/MIN
--- NOTE | 2024-08-30 05:55 | PCM.NOTE ---
Date and Time: 08/30/24 0549 Subjective Assessment: HPI: Ms. LAGUERRE is a 84 year old female with a past medical history significant for hypertension, hyperlipidemia and hypothyroidism admitted 08/29/24 after a ground level fall at home. Patient stated she was at home washing dishes when she became weak and fell, hitting her head and landing on her left side with no LOC. Patient did endorse hip pain, and CT scan demonstrated a displaced left femoral neck fracture. CT head with microvascular white matter ischemic changes and senile changes. 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 She reports having some low blood pressure readings last month and had her outpatient bp meds reduced. Ortho consulted for evaluation of left femoral neck fracture. 08/30/24: Met with patient bedside s/p surgical repair of left femoral neck fracture. Patient states she has left eye itching since surgery but otherwise pain is controlled with numerical rating at 4/10. Discussed events that prepreempted fall, daughters present during interview - state patient has recently had changes to BP meds with metoprolol changed to coreg. She also recently started taking Ozempic and has not been eating much. As far as rehab- family would like swing bed if possible. Denies fever,cough, sob, cp, abdominal pain, WHITFIELD, dizziness, N/V/D. - Review of Systems Constitutional: No Symptoms Eyes: No Symptoms Ears, Nose, & Throat: No Symptoms Respiratory: No Symptoms Cardiac: No Symptoms Abdominal/Gastrointestinal: No Symptoms Genitourinary Symptoms: No Symptoms Musculoskeletal: Joint Pain (left hip) Skin: No Symptoms Neurological: No Symptoms Psychological: No Symptoms Endocrine: No Symptoms Hematologic/Lymphatic: No Symptoms Immunological/Allergic: No Symptoms Objective Exam General Appearance: no apparent distress Neurologic Exam: alert, oriented x 3, cooperative Skin Exam: pale Wound Assessment: Skin/Wound Assessment Wound/Incision Assessment Start: 08/30/24 00: 20 Text: Status: Active Freq: Q6H Protocol: Document 08/30/24 01:10 (Rec: 08/30/24 01:12 [id number]) Wound/Incision Assessment Left Elbow Wound Assessment Admission Wound Type Skin Tear Drainage Amount Minimal Drainage Odor None/Absent Eye Exam: PERRL Ears, Nose, Throat Exam: normal ENT inspection Neck Exam: normal inspection Respiratory Exam: normal breath sounds, lungs clear Cardiovascular Exam: regular rate/rhythm, normal heart sounds Gastrointestinal/Abdomen Exam: soft, normal bowel sounds Extremity Exam: limited range of motion (left hip) Back Exam: normal inspection Objective Data Vital Signs: Vital Signs - 24 hr Temp Pulse Resp BP BP Pulse Ox 08/30/24 03:43 98.0 F 99 H 21 131/60 94 L 08/29/24 23:55 98.5 F 95 H 20 167/67 97 08/29/24 23:54 97 H 08/29/24 22:34 97 08/29/24 22:00 95 H 18 158/84 95 08/29/24 20:18 97.8 F 87 19 179/89 97 Pain Assessment - Last Documented Pain Intensity 10 Pain Scale Used 0-10 Pain Scale Intake and Output: Intake & Output 08/27/24 08/28/24 08/29/24 08/30/24 11:59 11:59 11:59 11:59 Weight 88.8 kg Lab Results: Lab Results-Last 24 Hours 08/29/24 08/29/24 08/30/24 Range/Units 20:53 20:53 04:06 WBC 8.4 (3.98-10.04) x10^3/uL RBC 4.99 (3.93-5.22) x10^6/uL Hgb 11.8 (11.2-15.7) g/dL Hct 39.8 (34.1-44.9) % MCV 79.8 (79.4-94.8) fL MCH 23.6 L (25.6-32.2) pg MCHC 29.6 L (32.2-35.5) g/dL RDW 24.8 H (11.7-14.4) % Plt Count 192 (182-369) x10^3/uL MPV 8.9 L (9.4-12.3) fL Gran % 85.0 H (34.0-71.1) % Immature Gran % (Auto) 0.5 H (0.001-0.429) % Nucleat RBC Rel Count 0.0 (0.00-0.2) % Eos # (Auto) 0.06 (0.04-0.36) x10^3/uL Immature Gran # (Auto) 0.04 H (0.001-0.031) x10^3u/L Absolute Lymphs (auto) 0.65 L (1.18-3.74) x10^3/uL Absolute Monos (auto) 0.46 (0.24-0.86) x10^3/uL Absolute Nucleated RBC 0.00 (0.00-0.012) x10^3u/L Lymphocytes % 7.8 L (19.3-51.7) % Monocytes % 5.5 (4.7-12.5) % Eosinophils % 0.7 (0.7-5.8) % Basophils % 0.5 (0.1-1.2) % Absolute Granulocytes 7.10 H (1.56-6.13) x10^3/uL Basophils # 0.04 (0.01-0.08) x10^3/uL Sodium 139 (135-145) mmol/L Potassium 3.7 (3.5-5.1) mmol/L Chloride 101 (98-107) mmol/L Carbon Dioxide 32 H (22-30) mmol/L Anion Gap 9.8 (5-15) MEQ/L BUN 13 (7-17) mg/dL Creatinine 0.90 (0.52-1.04) mg/dL Estimated GFR 63.8 ML/MIN Glucose 114 H (74-106) mg/dL Calcium 9.4 (8.4-10.2) mg/dL Total Bilirubin 0.30 (0.2-1.3) mg/dL AST 29 (14-36) U/L ALT 19 (0-35) U/L Alkaline Phosphatase 81 (38-126) U/L Serum Total Protein 6.8 (6.3-8.2) g/dL Albumin 4.0 (3.5-5.0) g/dL Prealbumin (17.6-36.0) mg/dL TSH 3rd Generation 0.939 (0.470-4.680) mIU/L Slides for Path Review YES 08/30/24 08/30/24 08/30/24 Range/Units 04:06 04:06 04:06 WBC 6.6 (3.98-10.04) x10^3/uL RBC 4.58 (3.93-5.22) x10^6/uL Hgb 10.9 L (11.2-15.7) g/dL Hct 35.9 (34.1-44.9) % MCV 78.4 L (79.4-94.8) fL MCH 23.8 L (25.6-32.2) pg MCHC 30.4 L (32.2-35.5) g/dL RDW 24.7 H (11.7-14.4) % Plt Count 190 (182-369) x10^3/uL MPV 9.2 L (9.4-12.3) fL Gran % (34.0-71.1) % Immature Gran % (Auto) (0.001-0.429) % Nucleat RBC Rel Count (0.00-0.2) % Eos # (Auto) (0.04-0.36) x10^3/uL Immature Gran # (Auto) (0.001-0.031) x10^3u/L Absolute Lymphs (auto) (1.18-3.74) x10^3/uL Absolute Monos (auto) (0.24-0.86) x10^3/uL Absolute Nucleated RBC (0.00-0.012) x10^3u/L Lymphocytes % (19.3-51.7) % Monocytes % (4.7-12.5) % Eosinophils % (0.7-5.8) % Basophils % (0.1-1.2) % Absolute Granulocytes (1.56-6.13) x10^3/uL Basophils # (0.01-0.08) x10^3/uL Sodium 136 (135-145) mmol/L Potassium 4.0 (3.5-5.1) mmol/L Chloride 101 (98-107) mmol/L Carbon Dioxide 30 (22-30) mmol/L Anion Gap 8.9 (5-15) MEQ/L BUN 13 (7-17) mg/dL Creatinine 0.78 (0.52-1.04) mg/dL Estimated GFR 75.8 ML/MIN Glucose 110 H (74-106) mg/dL Calcium 8.9 (8.4-10.2) mg/dL Total Bilirubin 0.30 (0.2-1.3) mg/dL AST 27 (14-36) U/L ALT 19 (0-35) U/L Alkaline Phosphatase 64 (38-126) U/L Serum Total Protein 6.0 L (6.3-8.2) g/dL Albumin 3.4 L (3.5-5.0) g/dL Prealbumin 16.85 L (17.6-36.0) mg/dL TSH 3rd Generation (0.470-4.680) mIU/L Slides for Path Review Radiology Exams: Radiology Procedures Category Date Time Status HEAD WITHOUT CONTRAST [CT] Stat Exams 08/29/24 20:36 Completed HIP UNI (2V) INCL PEL IF DONE Stat Exams 08/29/24 22:45 Taken PELVIS WITHOUT CONTRAST [CT] Stat Exams 08/29/24 20:36 Completed Assessment/Plan (1) Fracture of femoral neck, left Current Visit: Yes Status: Acute Assessment & Plan: -?medication cause of fall -Secondary to fall with L femoral neck fracture - anticoags per ortho -Consult Ortho -surgical repair 08/30/24 -PT eval when able -Pt would like swing bed on discharge if able Code(s): S72.002A - FRACTURE OF UNSP PART OF NECK OF LEFT FEMUR, INIT (2) Syncope and collapse Current Visit: No Status: Acute Assessment & Plan: -CT head CT head with microvascular whit matter ischemic changes and senile changes -check orthostatic vitals -tele -Check UA -Echo/carotid duplex -Med review - advised to discontinue ozempic -PT/OT consult Code(s): R55 - SYNCOPE AND COLLAPSE (3) Ground-level fall Current Visit: Yes Status: Acute Assessment & Plan: -see fractures above Code(s): W18.30XA - FALL ON SAME LEVEL, UNSPECIFIED, INITIAL ENCOUNTER (4) HTN (hypertension) Current Visit: Yes Status: Acute Assessment & Plan: -Episodes of hypotension reported a few months ago, resulting in bp med changes -Monitor BP closely -check orthos -resume home meds Code(s): I10 - ESSENTIAL (PRIMARY) HYPERTENSION (5) Hypothyroidism Current Visit: Yes Status: Acute Assessment & Plan: -TSH level pending -continue home meds Code(s): E03.9 - HYPOTHYROIDISM, UNSPECIFIED
[2024-08-30] MEDS ORDERED: Cleocin Phosphate IV 600 MG/4 ML ONE (07:28)
[2024-08-30] MEDS ORDERED: Lactated Ringers 1,000 ML IV ONE (07:29)
[2024-08-30] MEDS: Sodium Chloride 0.9% 1000 ML 1,000 ML IV SCH (08:22)
[2024-08-30] MEDS ORDERED: DIPRIVAN 200 MG/20 ML IV ONE (08:29)
[2024-08-30] MEDS ORDERED: SUBLIMAZE 100 MCG/2 ML ONE ×2 (08:29→11:29)
[2024-08-30] MEDS ORDERED: Zofran 4 MG/2 ML VIAL ONE (08:32)
[2024-08-30] MEDS ORDERED: ROCURONIUM BROMIDE IV ONE (08:32)
[2024-08-30] MEDS ORDERED: Decadron 4 MG INJ ONE (08:32)
[2024-08-30 08:37] LABS: ABO TYPING A; RH TYPING NEGATIVE
--- NOTE | 2024-08-30 08:39 | XRAY ---
Indication: Pain following fall. Comparison: None AP pelvis and 2 view left hip demonstrates moderately displaced/angulated left femur subcapital fracture. Elsewhere osteopenia, old left superior/inferior pubic rami fractures, mild degenerative changes visualized lower lumbar spine, and pelvic vascular calcifications. No other bony, articular, or soft tissue abnormalities.
[2024-08-30 08:44] LABS: Antibody Screen NEGATIVE (NEGATIVE)
[2024-08-30] MEDS ORDERED: TRANEXAMIC 1,000 MG/100ML-NACL 1,000 MG/100 ML PIGGYBACK IV ONE ×2 (09:00→10:23)
[2024-08-30] MEDS ORDERED: PHENYLEPHRINE HCL ONE (09:59)
[2024-08-30] MEDS ORDERED: NON-FORMULARY ITEM (Levothyroxine Sodium [Levothyroxine Sodium] 50 MCG Capsule) PO SCH (10:00)
[2024-08-30] MEDS ORDERED: Sodium Chloride 0.9% 1000 ML 1,000 ML ONE (10:04)
[2024-08-30] MEDS ORDERED: Naropin 0.5% 30 ML VIAL ONE (10:18)
[2024-08-30] MEDS ORDERED: BRIDION 200MG/2ML IV ONE (10:31)
[2024-08-30] MEDS ORDERED: Hydromorphone 1 mg/ml Injection ONE (11:44)
--- NOTE | 2024-08-30 12:48 | XRAY ---
Indication: Follow-up surgery. 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 Stable osteopenia and old left pubic rami fractures. No other bony, articular, or soft tissue abnormalities.
[2024-08-30] MEDS: Artificial Tears 15 ML OP PRN (13:58)
[2024-08-30] MEDS ORDERED: Nubain 10 MG/ML IV PRN (14:10)
[2024-08-30] MEDS ORDERED: Sodium Chloride 0.9% 10 ML FLUSH Syringe IJ PRN (14:10)
[2024-08-30] MEDS ORDERED: MORPHINE SULFATE 2 MG INJ IV PRN (14:10)
[2024-08-30] MEDS ORDERED: PERCOCET TABLET 5/325MG PO PRN (14:10)
[2024-08-30] MEDS ORDERED: Narcan 0.4 MG/ML IV PRN (14:10)
[2024-08-30] MEDS ORDERED: Zofran 4 MG/2 ML VIAL IV PRN (14:10)
[2024-08-30] MEDS ORDERED: BENADRYL 50 MG/ML IV PRN (14:10)
[2024-08-30] MEDS ORDERED: DEMEROL 50 MG IV PRN (14:10)
[2024-08-30] MEDS ORDERED: CLARITIN 10 MG PO PRN (14:10)
--- NOTE | 2024-08-30 14:29 | XRAY ---
Indication: Syncope. Two-dimensional sonogram and color Doppler imaging carotid arteries of the neck performed. Comparison: None Examination right carotid circulation demonstrates mild calcified plaquing in carotid bulb and origin/proximal internal carotid artery. Widely patent common carotid and external carotid arteries. PSV CCA is 48 cm/s. PSV ICA is 80 cm/s. ICA/CCA ratio is 1.7. Normal antegrade vertebral artery flow. Examination left carotid circulation demonstrates minimal calcified plaquing in carotid bulb extending origin internal carotid artery. Widely patent common carotid and external carotid arteries. PSV CCA is 62 cm/s. PSV ICA is 123 cm/s. ICA/CCA ratio is 2.0. Normal antegrade vertebral artery flow. 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 Velocity measurements and ratios negative for hemodynamically significant flow-limiting stenosis.
[2024-08-30] MEDS: CEFAZOLIN 2 GM/100 ML NaCl 2 GM/100 ML IVPB IV ONE (15:38)
[2024-08-30] MEDS: SYNTHROID 50 MCG PO SCH (15:38)
[2024-08-30] MEDS: Zofran 4 MG/2 ML VIAL IV PRN (16:14)
[2024-08-30] MEDS: CEFAZOLIN 2 GM/100 ML NaCl 2 GM/100 ML IVPB IV SCH (16:15)
[2024-08-30] MEDS ORDERED: NORCO 5/325 MG ONE (21:09)
[2024-08-30] MEDS: NORCO 5/325 MG PO PRN (21:25)
[2024-08-31] MEDS ORDERED: NORCO 5/325 MG ONE (04:39)
[2024-08-31 04:56] LABS: Hematocrit 28.6 % (34.1-44.9); Hemoglobin 8.4 g/dL (11.2-15.7); Mean Cell Volume 79.7 fL (79.4-94.8); Mean Corpuscular Hemoglobin 23.4 pg (25.6-32.2); Mean Corpuscular Hgb Concent. 29.4 g/dL (32.2-35.5); Mean Platelet Volume 9.4 fL (9.4-12.3); Platelet Count 157 x10^3/uL (182-369); Red Blood Count 3.59 x10^6/uL (3.93-5.22); Red Cell Distribution Width 24.9 % (11.7-14.4); White Blood Count 7.2 x10^3/uL (3.98-10.04)
--- NOTE | 2024-08-31 05:09 | PCM.NOTE ---
Date and Time: 08/31/24 0501 Subjective Assessment: HPI: Ms. LAGUERRE is a 84 year old female with a past medical history significant for hypertension, hyperlipidemia and hypothyroidism admitted 08/29/24 after a ground level fall at home. Patient stated she was at home washing dishes when she became weak and fell, hitting her head and landing on her left side with no LOC. Patient did endorse hip pain, and CT scan demonstrated a displaced left femoral neck fracture. CT head with microvascular white matter ischemic changes and senile changes. 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 She reports having some low blood pressure readings last month and had her outpatient bp meds reduced. Ortho consulted for evaluation of left femoral neck fracture. 08/30/24: Met with patient bedside s/p surgical repair of left femoral neck fracture. Patient states she has left eye itching since surgery but otherwise pain is controlled with numerical rating at 4/10. Discussed events that prepreempted fall, daughters present during interview - state patient has recently had changes to BP meds with metoprolol changed to coreg. She also recently started taking Ozempic and has not been eating much. As far as rehab- family would like swing bed if possible. Denies fever,cough, sob, cp, abdominal pain, WHITFIELD, dizziness, N/V/D. 08/31/24: Met with patient bedside. PODS#1 of left femoral neck fracture repair. Endorses pain is controlled at a 3/10 on numerical pain scale. Incision site is CDI. Labs and vitals are stable. Discussed case with Dr. Abdul (Ortho), he recommends discontinuation of Fosamax as the patient has been on this for 15 years. Plan for PT evaluation today and possible swing bed admission. Denies fever,cough, sob, cp, abdominal pain, WHITFIELD, dizziness, N/V/D. - Review of Systems Constitutional: No Symptoms Eyes: No Symptoms Ears, Nose, & Throat: No Symptoms Respiratory: No Symptoms Cardiac: No Symptoms Abdominal/Gastrointestinal: No Symptoms Genitourinary Symptoms: No Symptoms Musculoskeletal: Joint Pain (left hip) Skin: Other (surgical site on left hip with dressing CDI) Neurological: No Symptoms Psychological: No Symptoms Endocrine: No Symptoms Hematologic/Lymphatic: Anemia Immunological/Allergic: No Symptoms Objective Exam General Appearance: no apparent distress Neurologic Exam: alert, oriented x 3, cooperative Skin Exam: pale Wound Assessment: Skin/Wound Assessment Wound/Incision Assessment Start: 08/30/24 00:20 Text: Status: Active Freq: Q6H Protocol: Document 08/31/24 02:00 SIMBA (Rec: 08/31/24 02:09 SIMBA [id number]) Wound/Incision Assessment Left Hip Wound Assessment Shift Assessment Wound Type Incision Wound Stage Non Pressure Wound Dressing Status Dry & Intact Drainage Amount None Primary Dressing AQUACEL Left Elbow Wound Assessment Shift Assessment Wound Type Skin Tear Drainage Amount None General Appearance Open to air Eye Exam: PERRL Ears, Nose, Throat Exam: normal ENT inspection Neck Exam: normal inspection Respiratory Exam: normal breath sounds, lungs clear Cardiovascular Exam: regular rate/rhythm, normal heart sounds Gastrointestinal/Abdomen Exam: soft, normal bowel sounds Extremity Exam: normal inspection Back Exam: normal inspection Pelvic Exam: deferred Rectal Exam: deferred Objective Data Vital Signs: Vital Signs - 24 hr Temp Pulse Resp BP Pulse Ox 08/31/24 04:00 98.4 F 94 H 16 131/60 99 08/30/24 23:41 98.4 F 100 H 16 141/64 92 L 08/30/24 19:48 98.0 F 92 H 16 138/65 94 L 08/30/24 16:58 97.9 F 91 H 20 148/66 90 L 08/30/24 13:55 98.1 F 93 H 20 130/56 91 L 08/30/24 08:02 98.1 F 93 H 20 130/56 91 L 08/30/24 07:19 98.1 F 93 H 20 130/56 91 L Pain Assessment - Last Documented Pain Intensity 6 Pain Scale Used 0-10 Pain Scale Intake and Output: Intake & Output 08/28/24 08/29/24 08/30/24 08/31/24 11:59 11:59 11:59 11:59 Intake Total 1862 Balance 1862 Weight 88.8 kg Lab Results: Lab Results-Last 24 Hours 08/30/24 08/30/24 08/31/24 Range/Units 04:06 07:58 04:50 WBC 7.2 (3.98-10.04) x10^3/uL RBC 3.59 L (3.93-5.22) x10^6/uL Hgb 8.4 L D (11.2-15.7) g/dL Hct 28.6 L (34.1-44.9) % MCV 79.7 (79.4-94.8) fL MCH 23.4 L (25.6-32.2) pg MCHC 29.4 L (32.2-35.5) g/dL RDW 24.9 H (11.7-14.4) % Plt Count 157 L (182-369) x10^3/uL MPV 9.4 (9.4-12.3) fL TSH 3rd Generation 0.939 (0.470-4.680) mIU/L ABO Group A Rh Factor NEGATIVE Antibody Screen NEGATIVE (NEGATIVE) Radiology Exams: Radiology Procedures Category Date Time Status CAROTID BILATERAL [US] Routine Exams 08/30/24 08:08 Completed ECHO W/2D AND DOPPLER [US] Routine Exams 08/30/24 08:08 Taken HEAD WITHOUT CONTRAST [CT] Stat Exams 08/29/24 20:36 Completed HIP UNI (2V) INCL PEL IF DONE Routine Exams 08/30/24 08:21 Completed HIP UNI (2V) INCL PEL IF DONE Stat Exams 08/29/24 22:45 Completed PELVIS WITHOUT CONTRAST [CT] Stat Exams 08/29/24 20:36 Completed Assessment/Plan (1) Fracture of femoral neck, left Current Visit: Yes Status: Acute Assessment & Plan: -?medication cause of fall -Secondary to fall with L femoral neck fracture - anticoags per ortho -Consult Ortho -surgical repair 08/30/24 -PT eval when able -Pt would like swing bed on discharge if able 08/31: -Discontinue Fosamax per Ortho recommendations -PT to evaluate -Swing bed if possible Code(s): S72.002A - FRACTURE OF UNSP PART OF NECK OF LEFT FEMUR, INIT (2) Syncope and collapse Current Visit: No Status: Acute Assessment & Plan: -CT head CT head with microvascular whit matter ischemic changes and senile changes -check orthostatic vitals -tele -Check UA -Echo/carotid duplex -Med review - advised to discontinue ozempic -PT/OT consult 08/31: -Carotid negative for flow limiting stenosis -echo with EF of 64 % -no further episodes of dizziness Code(s): R55 - SYNCOPE AND COLLAPSE (3) Ground-level fall Current Visit: Yes Status: Acute Assessment & Plan: -see fractures above Code(s): W18.30XA - FALL ON SAME LEVEL, UNSPECIFIED, INITIAL ENCOUNTER (4) HTN (hypertension) Current Visit: Yes Status: Acute Assessment & Plan: -Episodes of hypotension reported a few months ago, resulting in bp med changes -Monitor BP closely -stable since admission -check orthos -resume home meds Code(s): I10 - ESSENTIAL (PRIMARY) HYPERTENSION (5) Hypothyroidism Current Visit: Yes Status: Acute Assessment & Plan: -TSH level WNL -continue home meds Code(s): S72.002A - FRACTURE OF UNSP PART OF NECK OF LEFT FEMUR, INIT (2) Syncope and collapse Current Visit: No Status: Acute Code(s): R55 - SYNCOPE AND COLLAPSE (3) Ground-level fall Current Visit: Yes Status: Acute Code(s): W18.30XA - FALL ON SAME LEVEL, UNSPECIFIED, INITIAL ENCOUNTER (4) HTN (hypertension) Current Visit: Yes Status: Acute Code(s): I10 - ESSENTIAL (PRIMARY) HYPERTENSION (5) Hypothyroidism Current Visit: Yes Status: Acute Code(s): E03.9 - HYPOTHYROIDISM, UNSPECIFIED
[2024-08-31 05:15] LABS: ALBUMIN 2.8 g/dL (3.5-5.0); ANION GAP 7.8 MEQ/L (5-15); BILIRUBIN,TOTAL 0.2 mg/dL (0.2-1.3); Calcium 7.9 mg/dL (8.4-10.2); Creatinine 1 0.81 mg/dL (0.52-1.04); EST GLOMERULAR FILTRATION RATE 72.4 ML/MIN; Potassium 3.9 mmol/L (3.5-5.1); Total Protein 5.2 g/dL (6.3-8.2)
[2024-08-31] MEDS ORDERED: NORCO 5/325 MG PO PRN (06:56)
[2024-08-31 07:35] LABS: Slide Review YES
[2024-08-31] MEDS: NORCO 10-325 MG PO PRN (09:29)
[2024-08-31] MEDS: Ecotrin 325 MG PO SCH (09:29)
--- NOTE | 2024-08-31 09:48 | OP ---
SURGERY DATE/TIME: 08/30/2024 [id number] PREOPERATIVE DIAGNOSIS: Subcapital fracture, left hip. POSTOPERATIVE DIAGNOSIS: Subcapital fracture, left hip. PROCEDURE: Bipolar delfin-replacement arthroplasty, left hip, utilizing [employer] instrumentation, the Echo stem size 13 cemented, a 28 mm head with a +3 neck, and a 50 mm bipolar. Cement is cemented. SURGEON: Malachi Abdul II, DO ANESTHESIA: General. DESCRIPTION OF PROCEDURE AND FINDINGS: The patient was identified. Informed consent was obtained. The patient was taken to the operative suite, given the general anesthetic. Following this, she was then placed into the right lateral decubitus position with the left side up. Bony prominences padded, axillary roll placed. She was appropriately positioned on the peg board. The left lower extremity was then prepped and draped in the usual sterile fashion. A standard time-out was taken. Scattered posterior incision was accomplished. Skin and subcutaneous tissue was incised. Dissection was carried out through the level of the tensor fascia mary which was split in line with the fibers for a distance of about 1 inch to 1-1/2 inches. The gluteus was also split in line with its fibers. The Charnley retractor was then placed and dissection was carried out, elevating the greater trochanteric bursa. A cobra retractor was placed under the gluteus medius and minimus. The piriformis was easily identified, tagged, and released. At this point, the sciatic nerve had been palpated and was noted to be deep within the wound, well out of harm's way. Short external rotators were released, and the capsule was then opened in a T-type fashion. Following this, the corkscrew extraction device was utilized to remove the head. At this point, the acetabulum was cleaned of any debris and trial reduction showed a 50 mm bipolar would be the appropriate size. The neck cut was then freshened and utilizing the box chisel, the calcar was opened. The T-handle reamer was utilized to open the canal. Conical reamers were then utilized to ream to a size 15, and broaches were also used to a size 15. Trial reduction showed that a +3 neckline gave excellent soft tissue balance, equalized the leg lengths, and had good stability with flexion to greater than 90 degrees and internal rotation to greater than 85 degrees. At this point, the trial instrumentation was removed. The pulse manager of application development was used to irrigate the canal and acetabulum. Cement restrictor placed and the bone sponge was then placed while the cement was being vacuum mixed. Cement was then pressed into the interstices of the bone with the cement gun, and the 13 mm stem was then inserted and fully impacted into position with 10 degrees of anteversion. All excess cement was removed during the curing process. Once the cement had fully cured, the head with the +3 neck was then applied along with the bipolar unit. The hip was reduced, again placed through a range of motion and noted to have excellent stability in all planes of motion as it had been noted with the trial. The wound was then copiously irrigated. The capsule was closed #1 Vicryl. Piriformis was re-attached to the greater trochanter with #1 Vicryl, #2 Stratafix was utilized for the tensor fascia mary and gluteus, 2-0 Monocryl for subcutaneous tissue, and 3-0 Stratafix augmented with Dermabond for the skin, and Aquacel dressing was applied. The patient was transferred to her bed and taken to recovery room in satisfactory condition, having tolerated the procedure well.
[2024-08-31] MEDS ORDERED: HOLD NARCOTIC ANALGESICS AND SEDATIVES X24 HR MC SCH (10:00)
--- NOTE | 2024-08-31 10:15 | CONS ---
HISTORY: The patient was seen and examined. Her chart was reviewed. The patient is an 84-year-old female who fell while at home yesterday. She got lightheaded and lost her balance. She fell and sustained an injury to her left hip. She was seen in the emergency room and admitted to the hospital for definitive care. She sustained no other injuries in the fall. She has had a recent change in her blood pressure medication and feels that this is what made her dizzy. PAST MEDICAL HISTORY: She has a significant medical history for hypertension, hypercholesterolemia, and hypothyroidism. HOME MEDICATIONS: Carvedilol 12.5 mg b.i.d., Norvasc 2.5 mg at bedtime. She is also on Fosamax 70 mg weekly, levothyroxine 50 mcg daily, multivitamin and PreserVision, as well as Xalatan ophthalmic. She also takes rosuvastatin 10 mg daily and gabapentin 300 mg daily. ALLERGIES: She has no known drug allergies. LAB DATA AND TESTS: X-rays show a subcapital fracture of the left hip which is displaced. CT scan shows the same thing. The CAT scan is dated 08/29/2024, and the x-ray is 08/30/2024. PHYSICAL EXAMINATION: GENERAL: She is 5 feet 7 inches tall. She weighs 195 pounds. EXTREMITIES: Pertinent examination shows that the patient has a shortened, externally rotated left lower extremity. There is tenderness to palpation about the left hip and with any movement of the left hip. Pulses are 2/4 at the dorsalis pedis and posterior tibial. NEUROLOGIC: Motor function is intact, as is sensory function. IMPRESSION: Subcapital fracture of the left hip. RECOMMENDATIONS AND PLAN: Bipolar delfin-replacement arthroplasty, left hip. The inherent risks, benefits, complications and alternatives were explained in detail to the patient and her . They understand these, and an informed consent was given and signed. The patient will be taken to the operative suite at this time for definitive surgery.
[2024-08-31] MEDS ORDERED: TYLENOL EXTRA STRENGTH 500 MG PO PRN (14:10)
[2024-09-01 04:44] LABS: Hematocrit 25.1 % (34.1-44.9); Hemoglobin 7.6 g/dL (11.2-15.7); Mean Cell Volume 78.7 fL (79.4-94.8); Mean Corpuscular Hemoglobin 23.8 pg (25.6-32.2); Mean Corpuscular Hgb Concent. 30.3 g/dL (32.2-35.5); Mean Platelet Volume 9.3 fL (9.4-12.3); Platelet Count 138 x10^3/uL (182-369); Red Blood Count 3.19 x10^6/uL (3.93-5.22); Red Cell Distribution Width 25.4 % (11.7-14.4); White Blood Count 6.1 x10^3/uL (3.98-10.04)
--- NOTE | 2024-09-01 04:59 | PCM.NOTE ---
Date and Time: 09/01/24 0459 Subjective Assessment: HPI: Ms. LAGUERRE is a 84 year old female with a past medical history significant for hypertension, hyperlipidemia and hypothyroidism admitted 08/29/24 after a ground level fall at home. Patient stated she was at home washing dishes when she became weak and fell, hitting her head and landing on her left side with no LOC. Patient did endorse hip pain, and CT scan demonstrated a displaced left femoral neck fracture. CT head with microvascular white matter ischemic changes and senile changes. 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 She reports having some low blood pressure readings last month and had her outpatient bp meds reduced. Ortho consulted for evaluation of left femoral neck fracture. 08/30/24: Met with patient bedside s/p surgical repair of left femoral neck fracture. Patient states she has left eye itching since surgery but otherwise pain is controlled with numerical rating at 4/10. Discussed events that prepreempted fall, daughters present during interview - state patient has recently had changes to BP meds with metoprolol changed to coreg. She also recently started taking Ozempic and has not been eating much. As far as rehab- family would like swing bed if possible. Denies fever,cough, sob, cp, abdominal pain, WHITFIELD, dizziness, N/V/D. 08/31/24: Met with patient bedside. PODS#1 of left femoral neck fracture repair. Endorses pain is controlled at a 3/10 on numerical pain scale. Incision site is CDI. Labs and vitals are stable. Discussed case with Dr. Abdul (Ortho), he recommends discontinuation of Fosamax as the patient has been on this for 15 years. Plan for PT evaluation today and possible swing bed admission. Denies fever,cough, sob, cp, abdominal pain, WHITFIELD, dizziness, N/V/D. 09/01/24: PODS#2, patient doing well with PT/OT. Discussed labwork showing anemia. Will start venofer for iron deficiency. Most likely will need consult to hematology as OP to continue infusions. Denies fever,cough, sob, cp, abdominal pain, WHITFIELD, dizziness, N/V/D. - Review of Systems Constitutional: No Symptoms Eyes: No Symptoms Ears, Nose, & Throat: No Symptoms Respiratory: No Symptoms Cardiac: No Symptoms Abdominal/Gastrointestinal: Nausea Genitourinary Symptoms: No Symptoms Musculoskeletal: Joint Pain (Left hip) Skin: No Symptoms Neurological: No Symptoms Psychological: No Symptoms Endocrine: No Symptoms Hematologic/Lymphatic: Anemia Immunological/Allergic: No Symptoms Objective Exam General Appearance: no apparent distress Neurologic Exam: alert, oriented x 3, cooperative Skin Exam: pale Wound Assessment: Skin/Wound Assessment Wound/Incision Assessment Start: 08/30/24 00:20 Text: Status: Active Freq: Q6H Protocol: Document 09/01/24 02:00 LB (Rec: 09/01/24 02:29 LB [id number]) Wound/Incision Assessment Left Hip Wound Assessment Shift Assessment Wound Type Incision Wound Stage Non Pressure Wound Dressing Status Dry & Intact Drainage Amount None Primary Dressing AQUACEL Comment dressing in place CDI Left Elbow Wound Assessment Shift Assessment Wound Type Skin Tear Wound Stage Non Pressure Wound Drainage Amount None General Appearance Open to air Wound Photo Photo Taken No Eye Exam: PERRL Ears, Nose, Throat Exam: normal ENT inspection Neck Exam: normal inspection Respiratory Exam: normal breath sounds, lungs clear Cardiovascular Exam: regular rate/rhythm, normal heart sounds Gastrointestinal/Abdomen Exam: soft, normal bowel sounds Extremity Exam: normal inspection, other (surgical incision covered with dressing to left hip) Back Exam: normal inspection Pelvic Exam: deferred Rectal Exam: deferred Objective Data Vital Signs: Vital Signs - 24 hr Temp Pulse Resp BP Pulse Ox 09/01/24 04:00 98.6 F 109 H 16 144/60 98 09/01/24 00:00 98.7 F 99 H 18 114/59 93 L 08/31/24 19:29 98.7 F 96 H 18 134/61 08/31/24 16:00 98.3 F 88 18 121/58 95 08/31/24 11:49 98.1 F 90 16 143/61 92 L 08/31/24 07:13 97.7 F 95 H 16 127/59 97 Pain Assessment - Last Documented Pain Intensity 0 Pain Scale Used FLACC Intake and Output: Intake & Output 08/29/24 08/30/24 08/31/24 09/01/24 11:59 11:59 11:59 11:59 Intake Total 1862 690 Output Total 300 Balance 1562 690 Weight 88.8 kg 88.8 kg Lab Results: Lab Results-Last 24 Hours 11/10/1208/31/24 09/01/24 Range/Units 04:50 04:50 04:40 WBC 7.2 6.1 (3.98-10.04) x10^3/uL RBC 3.59 L 3.19 L (3.93-5.22) x10^6/uL Hgb 8.4 L D 7.6 L (11.2-15.7) g/dL Hct 28.6 L 25.1 L (34.1-44.9) % MCV 79.7 78.7 L (79.4-94.8) fL MCH 23.4 L 23.8 L (25.6-32.2) pg MCHC 29.4 L 30.3 L (32.2-35.5) g/dL RDW 24.9 H 25.4 H (11.7-14.4) % Plt Count 157 L 138 L (182-369) x10^3/uL MPV 9.4 9.3 L (9.4-12.3) fL Sodium 135 (135-145) mmol/L Potassium 3.9 (3.5-5.1) mmol/L Chloride 106 (98-107) mmol/L Carbon Dioxide 25 (22-30) mmol/L Anion Gap 7.8 (5-15) MEQ/L BUN 13 (7-17) mg/dL Creatinine 0.81 (0.52-1.04) mg/dL Estimated GFR 72.4 ML/MIN Glucose 113 H (74-106) mg/dL Calcium 7.9 L (8.4-10.2) mg/dL Total Bilirubin 0.20 (0.2-1.3) mg/dL AST 30 (14-36) U/L ALT 13 (0-35) U/L Alkaline Phosphatase 57 (38-126) U/L Serum Total Protein 5.2 L (6.3-8.2) g/dL Albumin 2.8 L (3.5-5.0) g/dL Slides for Path Review YES Radiology Exams: Radiology Procedures Category Date Time Status CAROTID BILATERAL [US] Routine Exams 08/30/24 08:08 Completed ECHO W/2D AND DOPPLER [US] Routine Exams 08/30/24 08:08 Taken HIP UNI (2V) INCL PEL IF DONE Routine Exams 08/30/24 08:21 Completed Multi-Disciplinary Progress Notes: Multi-Disciplinary Progress Notes 08/31/24 15:54 Case Management Note by Kaylynn Pedersen SPOKE WITH PT AND DAUGHTER IVANIA REGARDING INSURANCE NOT APPROVING SWING BED STAY [facility]WORK WITH THIS HMO PLAN. BOTH PT AND IVANIA ARE DISAPPOINTED. IVANIA REPORTS THAT THEY WILL TAKE HER HOME, THEY HAVE ENOUGH FAMILY TO STAY WITH HER. SHE WOULD LIKE REFERRAL TO [facility] AND REQUEST FELIBERTO GAMBOA HER MOTHER'S PHYSICAL THERAPIST. THEY ARE HOPEFUL THAT [facility] WILL BE IN NETWORK WITH HER INSURANCE. Initialized on 08/31/24 15:54 - END OF NOTE 08/31/24 15:20 (created 08/31/24 15:50) Case Management Note by Kaylynn Pedersen SPOKE WITH CANDICE CARMONA AT [employer] WHO REPORTS THAT [facility] IS OUT OF NETWORK WITH THIS HMO PLAN. THEY WILL NOT APPROVE A SWING BED STAY AT THIS FACILITY. CANDICE CARMONA REPORTS THAT [facility], [facility], AND [facility] ARE ALL IN NETWORK AND THEY WOULD APPROVE FOR HER TO GO TO ONE OF THOSE FACILITIES. CANDICE CARMONA REPORTS THAT THIS PLAN HAS NO OUT OF NETWORK BENEFIT. Initialized on 08/31/24 15:50 - END OF NOTE 08/31/24 10:42 Case Management Note by Annabel Mohan S/W PATIENT- SHE CONTINUES TO PLAN TO HOPEFULLY TRANSITION TO SWINGBED HERE AT [facility] Initialized on 08/31/24 10:42 - END OF NOTE Assessment/Plan (1) Fracture of femoral neck, left Current Visit: Yes Status: Acute Assessment & Plan: -?medication cause of fall -Secondary to fall with L femoral neck fracture - anticoags per ortho -Consult Ortho -surgical repair 08/30/24 -PT eval when able -Pt would like swing bed on discharge if able 08/31: -Discontinue Fosamax per Ortho recommendations -PT to evaluate -Swing bed if possible 09/01: -Unable to obtain swing bed authorization - patient would like [facility] in place of rehab stay Code(s): S72.002A - FRACTURE OF UNSP PART OF NECK OF LEFT FEMUR, INIT (2) Syncope and collapse Current Visit: No Status: Acute Assessment & Plan: -CT head CT head with microvascular whit matter ischemic changes and senile changes -check orthostatic vitals -tele -Check UA -Echo/carotid duplex -Med review - advised to discontinue ozempic -PT/OT consult 08/31: -Carotid negative for flow limiting stenosis -echo with EF of 64 % -no further episodes of dizziness Code(s): R55 - SYNCOPE AND COLLAPSE (3) Ground-level fall Current Visit: Yes Status: Acute Assessment & Plan: -see fractures above Code(s): W18.30XA - FALL ON SAME LEVEL, UNSPECIFIED, INITIAL ENCOUNTER (4) HTN (hypertension) Current Visit: Yes Status: Acute Assessment & Plan: -Episodes of hypotension reported a few months ago, resulting in bp med changes -Monitor BP closely -stable since admission -check orthos -resume home meds Code(s): I10 - ESSENTIAL (PRIMARY) HYPERTENSION (5) Hypothyroidism Current Visit: Yes Status: Acute Assessment & Plan: -TSH level WNL -continue home meds Anemia -Iron labs reviewed with iron sat at 11% - will start venofer- will need hematology as OP -Monitor and replace if hgb <7 -recheck H&H at noon Code(s): S72.002A - FRACTURE OF UNSP PART OF NECK OF LEFT FEMUR, INIT (2) Syncope and collapse Current Visit: No Status: Acute Code(s): R55 - SYNCOPE AND COLLAPSE (3) Ground-level fall Current Visit: Yes Status: Acute Code(s): W18.30XA - FALL ON SAME LEVEL, UNSPECIFIED, INITIAL ENCOUNTER (4) HTN (hypertension) Current Visit: Yes Status: Acute Code(s): I10 - ESSENTIAL (PRIMARY) HYPERTENSION (5) Hypothyroidism Current Visit: Yes Status: Acute Code(s): E03.9 - HYPOTHYROIDISM, UNSPECIFIED (6) Anemia Current Visit: Yes Status: Acute Code(s): D64.9 - ANEMIA, UNSPECIFIED
[2024-09-01 05:06] LABS: ALBUMIN 2.7 g/dL (3.5-5.0); ANION GAP 5.9 MEQ/L (5-15); BILIRUBIN,TOTAL 0.2 mg/dL (0.2-1.3); Calcium 8.2 mg/dL (8.4-10.2); Creatinine 1 0.8 mg/dL (0.52-1.04); EST GLOMERULAR FILTRATION RATE 73.5 ML/MIN; Total Protein 5.1 g/dL (6.3-8.2)
[2024-09-01 08:47] LABS: Iron 25 ug/dL (37-170); Iron Saturation 11 % (20-39); TIBC 220 ug/dL (265-462)
[2024-09-01 09:43] LABS: Ferritin 14.3 ng/mL (11.1-264); Folate (Folic Acid) > 20.0 ng/mL (2.76 - >20); Vitamin B12 320 pg/mL (239-931)
[2024-09-01] MEDS ORDERED: NON-FORMULARY ITEM (Rosuvastatin Calcium [Rosuvastatin Calcium] 10 MG Tablet) PO SCH (10:00)
[2024-09-01] MEDS ORDERED: [UNRECOGNIZED DRUG - OTHER] PO SCH (10:00)
[2024-09-01] MEDS: Venofer 100 MG/5 ML*** 200 MG in Sodium Chloride 0.9% 100 ML IV SCH (10:06)
[2024-09-01] MEDS: COREG 12.5 MG PO SCH (10:06)
[2024-09-01] MEDS: NEURONTIN PO SCH (10:07)
[2024-09-01] MEDS: ZOCOR 20MG PO SCH (10:07)
[2024-09-01] MEDS: Ocuvite Tablet PO SCH (10:07)
[2024-09-01 12:25] LABS: Hematocrit 29.3 % (34.1-44.9); Hemoglobin 8.5 g/dL (11.2-15.7)
[2024-09-01] MEDS ORDERED: Compazine 10 MG/2 ML IV PRN (14:38)
[2024-09-01] MEDS: NORVASC 5 MG PO SCH (21:58)
[2024-09-01] MEDS ORDERED: NON-FORMULARY ITEM (Amlodipine Besylate [Norvasc] 2.5 MG Tablet) PO SCH (22:00)
[2024-09-01] MEDS: Xalatan OP SCH (22:05)
[2024-09-02 05:31] LABS: ALBUMIN 2.7 g/dL (3.5-5.0); ANION GAP 8.6 MEQ/L (5-15); BILIRUBIN,TOTAL 0.2 mg/dL (0.2-1.3); Calcium 8.3 mg/dL (8.4-10.2); Creatinine 1 0.91 mg/dL (0.52-1.04); Total Protein 5.2 g/dL (6.3-8.2)
[2024-09-02 07:43] LABS: Hemoglobin 7.5 g/dL (11.2-15.7)
[2024-09-02 11:11] LABS: ABO TYPING A; Antibody Screen NEGATIVE (NEGATIVE); RH TYPING NEGATIVE
[2024-09-02 11:13] LABS: CROSS MATCH (PRBC) COMPATIBLE (COMPATIBLE)
[2024-09-02 11:16] LABS: CROSS MATCH (PRBC) COMPATIBLE (COMPATIBLE)
--- NOTE | 2024-09-02 12:19 | PCM.NOTE ---
Date and Time: 09/02/24 1213 Subjective Assessment: HPI: Ms. LAGUERRE is a 84 year old female with a past medical history significant for hypertension, hyperlipidemia and hypothyroidism admitted 08/29/24 after a ground level fall at home. Patient stated she was at home washing dishes when she became weak and fell, hitting her head and landing on her left side with no LOC. Patient did endorse hip pain, and CT scan demonstrated a displaced left femoral neck fracture. CT head with microvascular white matter ischemic changes and senile changes. 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 She reports having some low blood pressure readings last month and had her outpatient bp meds reduced. Ortho consulted for evaluation of left femoral neck fracture. 08/30/24: Met with patient bedside s/p surgical repair of left femoral neck fracture. Patient states she has left eye itching since surgery but otherwise pain is controlled with numerical rating at 4/10. Discussed events that prepreempted fall, daughters present during interview - state patient has recently had changes to BP meds with metoprolol changed to coreg. She also recently started taking Ozempic and has not been eating much. As far as rehab- family would like swing bed if possible. Denies fever,cough, sob, cp, abdominal pain, WHITFIELD, dizziness, N/V/D. 08/31/24: Met with patient bedside. PODS#1 of left femoral neck fracture repair. Endorses pain is controlled at a 3/10 on numerical pain scale. Incision site is CDI. Labs and vitals are stable. Discussed case with Dr. Abdul (Ortho), he recommends discontinuation of Fosamax as the patient has been on this for 15 years. Plan for PT evaluation today and possible swing bed admission. Denies fever,cough, sob, cp, abdominal pain, WHITFIELD, dizziness, N/V/D. 09/01/24: PODS#2, patient doing well with PT/OT. Discussed labwork showing anemia. Will start venofer for iron deficiency. Most likely will need consult to hematology as OP to continue infusions. Denies fever,cough, sob, cp, abdominal pain, WHITFIELD, dizziness, N/V/D. 09/02: PODS#3, patient working well with PT/OT. Discussed labwork with Hgb at 7.5 today. Patient's family doctor requesting 2 units of blood which we will initiate. Plan for discharge home tomorrow or Friday with HHC and PT. No other complaints. - Review of Systems Constitutional: No Symptoms Eyes: No Symptoms Ears, Nose, & Throat: No Symptoms Respiratory: No Symptoms Cardiac: No Symptoms Abdominal/Gastrointestinal: No Symptoms Genitourinary Symptoms: No Symptoms Musculoskeletal: Joint Pain (left hip 10) Skin: Other (left hip surgical incision with surgical dressing. ) Neurological: No Symptoms Psychological: No Symptoms Endocrine: No Symptoms Hematologic/Lymphatic: Anemia Immunological/Allergic: No Symptoms Objective Exam General Appearance: no apparent distress Neurologic Exam: alert, oriented x 3, cooperative Skin Exam: pale Wound Assessment: Skin/Wound Assessment Wound/Incision Assessment Start: 08/30/24 00:20 Text: Status: Active Freq: Q6H Protocol: Document 09/02/24 08:00 RB (Rec: 09/02/24 09:17 RB [id number]) Wound/Incision Assessment Left Hip Wound Assessment Shift Assessment Wound Type Incision Wound Stage Non Pressure Wound Dressing Status Dry & Intact Drainage Amount None Primary Dressing AQUACEL Comment cdi Left Elbow Wound Assessment Shift Assessment Wound Type Skin Tear Wound Stage Non Pressure Wound Drainage Amount None General Appearance Open to air Wound Photo Photo Taken No Eye Exam: PERRL Ears, Nose, Throat Exam: normal ENT inspection Neck Exam: normal inspection Respiratory Exam: normal breath sounds, lungs clear Cardiovascular Exam: regular rate/rhythm, normal heart sounds Gastrointestinal/Abdomen Exam: soft, normal bowel sounds Extremity Exam: normal inspection, other (left hip surgical incision with surgical dressing.) Pelvic Exam: deferred Objective Data Vital Signs: Vital Signs - 24 hr Temp Pulse Resp BP Pulse Ox 09/02/24 11:49 97.3 F 79 16 108/52 91 L 09/02/24 07:26 99.0 F 91 H 16 128/59 92 L 09/02/24 04:00 98.5 F 81 13 125/59 93 L 09/02/24 00:00 97.9 F 86 17 97/63 90 L 09/01/24 20:00 99.1 F 89 18 123/60 93 L 09/01/24 15:37 99.1 F 81 16 123/59 91 L Pain Assessment - Last Documented Pain Intensity 3 Pain Scale Used 0-10 Pain Scale Intake and Output: Intake & Output 08/31/24 09/01/24 09/02/24 09/03/24 11:59 11:59 11:59 11:59 Intake Total 4728 354 9548 Output Total 300 Balance 5029 408 9189 Weight 88.8 kg Lab Results: Lab Results-Last 24 Hours 09/01/24 09/02/24 09/02/24 Range/Units 12:00 05:04 05:04 Hgb 8.5 L 7.5 L (11.2-15.7) g/dL Hct 29.3 L 25.0 L (34.1-44.9) % Sodium 134 L (135-145) mmol/L Potassium 4.0 (3.5-5.1) mmol/L Chloride 101 (98-107) mmol/L Carbon Dioxide 28 (22-30) mmol/L Anion Gap 8.6 (5-15) MEQ/L BUN 19 H (7-17) mg/dL Creatinine 0.91 (0.52-1.04) mg/dL Estimated GFR 63.0 ML/MIN Glucose 93 (74-106) mg/dL Calcium 8.3 L (8.4-10.2) mg/dL Total Bilirubin 0.20 (0.2-1.3) mg/dL AST 26 (14-36) U/L ALT 10 (0-35) U/L Alkaline Phosphatase 53 (38-126) U/L Serum Total Protein 5.2 L (6.3-8.2) g/dL Albumin 2.7 L (3.5-5.0) g/dL ABO Group Rh Factor Antibody Screen (NEGATIVE) Crossmatch (COMPATIBLE) 09/02/24 09/02/24 Range/Units 10:00 10:00 Hgb (11.2-15.7) g/dL Hct (34.1-44.9) % Sodium (135-145) mmol/L Potassium (3.5-5.1) mmol/L Chloride (98-107) mmol/L Carbon Dioxide (22-30) mmol/L Anion Gap (5-15) MEQ/L BUN (7-17) mg/dL Creatinine (0.52-1.04) mg/dL Estimated GFR ML/MIN Glucose (74-106) mg/dL Calcium (8.4-10.2) mg/dL Total Bilirubin (0.2-1.3) mg/dL AST (14-36) U/L ALT (0-35) U/L Alkaline Phosphatase (38-126) U/L Serum Total Protein (6.3-8.2) g/dL Albumin (3.5-5.0) g/dL ABO Group A Rh Factor NEGATIVE Antibody Screen NEGATIVE (NEGATIVE) Crossmatch COMPATIBLE COMPATIBLE (COMPATIBLE) Multi-Disciplinary Progress Notes: Multi-Disciplinary Progress Notes 09/01/24 13:58 Case Management Note by Annabel Mohan S/W PATIENT AND FAMILY- THEY ARE NOT INTERESTED IN SENDING PATIENT TO A REHAB FACILITY IN [facility]. THEY PLAN FOR PATIENT TO GO HOME WITH FAMILY TO STAY WITH HER 12/05. DAUGHTER IVANIA REPORTS THEY WILL TAKE TURNS BEING THERE. THEY HAVE 5 NURSES IN THE FAMILY THAT CAN HELP ON TOP OF OTHER FAMILY MEMBERS. SENT REFERRAL TO [facility] PER THEIR REQUEST. ORDERED [facility] THRU [facility] FOR DELIVERY [facility]. PATIENT ORDERED OTHER DME EQUIPMENT WITH HELP OF OT STAFF. IVANIA DENIES ANY OTHER NEEDS FOR DC AT THIS TIME. Initialized on 09/01/24 13:58 - END OF NOTE 09/01/24 13:48 Case Management Note by Annabel Mohan NEW REFERRAL FAXED TO [facility] PER FAMILY REQUEST. THEY WILL NEED NOTIFIED AT TIME OF DC AT [phone]. THEY WILL NEED FAXED THE DC INSTRUCTIONS, DC MED LIST AND DC SUMMARY TO [phone] Initialized on 09/01/24 13:48 - END OF NOTE Assessment/Plan (1) Fracture of femoral neck, left Current Visit: Yes Status: Acute Assessment & Plan: -?medication cause of fall -Secondary to fall with L femoral neck fracture - anticoags per ortho -Consult Ortho -surgical repair 08/30/24 -PT eval when able -Pt would like swing bed on discharge if able 08/31: -Discontinue Fosamax per Ortho recommendations -PT to evaluate -Swing bed if possible 09/01: -Unable to obtain swing bed authorization - patient would like [facility] in place of rehab stay Code(s): S72.002A - FRACTURE OF UNSP PART OF NECK OF LEFT FEMUR, INIT (2) Syncope and collapse Current Visit: No Status: Acute Assessment & Plan: -CT head CT head with microvascular whit matter ischemic changes and senile changes -check orthostatic vitals -tele -Check UA -Echo/carotid duplex -Med review - advised to discontinue ozempic -PT/OT consult 08/31: -Carotid negative for flow limiting stenosis -echo with EF of 64 % -no further episodes of dizziness Code(s): R55 - SYNCOPE AND COLLAPSE (3) Ground-level fall Current Visit: Yes Status: Acute Assessment & Plan: -see fractures above Code(s): W18.30XA - FALL ON SAME LEVEL, UNSPECIFIED, INITIAL ENCOUNTER (4) HTN (hypertension) Current Visit: Yes Status: Acute Assessment & Plan: -Episodes of hypotension reported a few months ago, resulting in bp med changes -Monitor BP closely -stable since admission -check orthos -resume home meds Code(s): I10 - ESSENTIAL (PRIMARY) HYPERTENSION (5) Hypothyroidism Current Visit: Yes Status: Acute Assessment & Plan: -TSH level WNL -continue home meds Anemia -Iron labs reviewed with iron sat at 11% - will start venofer- will need hematology as OP -Monitor and replace if hgb <7 -recheck H&H at noon 09/02: -CBC reviewed, hgb at 7.5 - will transfuse 2 units lprbc as requested by PCP -CBC 1 hr s/p transfusion Code(s): S72.002A - FRACTURE OF UNSP PART OF NECK OF LEFT FEMUR, INIT (2) Syncope and collapse Current Visit: No Status: Acute Code(s): R55 - SYNCOPE AND COLLAPSE (3) Ground-level fall Current Visit: Yes Status: Acute Code(s): W18.30XA - FALL ON SAME LEVEL, UNSPECIFIED, INITIAL ENCOUNTER (4) HTN (hypertension) Current Visit: Yes Status: Acute Code(s): I10 - ESSENTIAL (PRIMARY) HYPERTENSION (5) Hypothyroidism Current Visit: Yes Status: Acute Code(s): E03.9 - HYPOTHYROIDISM, UNSPECIFIED (6) Anemia Current Visit: Yes Status: Acute Code(s): D64.9 - ANEMIA, UNSPECIFIED
[2024-09-02 20:06] LABS: Hematocrit 32.4 % (34.1-44.9); Hemoglobin 10.1 g/dL (11.2-15.7)
[2024-09-03 04:58] LABS: Absolute Neutrophil Ct (ANC) 2.91 x10^3/uL (1.56-6.13); BASOPHIL % 0.8 % (0.1-1.2); Basophil (Absolute #) 0.04 x10^3/uL (0.01-0.08); Eosinophil % 2.5 % (0.7-5.8); Eosinophil (Absolute #) 0.13 x10^3/uL (0.04-0.36); Hematocrit 31.2 % (34.1-44.9); Hemoglobin 9.8 g/dL (11.2-15.7); IMMATURE GRAN # 0.03 x10^3u/L (0.001-0.031); IMMATURE GRAN % 0.6 % (0.001-0.429); Lymphocyte (Absolute #) 1.49 x10^3/uL (1.18-3.74); Lymphocytes % 28.3 % (19.3-51.7); Mean Cell Volume 81.7 fL (79.4-94.8); Mean Corpuscular Hemoglobin 25.7 pg (25.6-32.2); Mean Corpuscular Hgb Concent. 31.4 g/dL (32.2-35.5); Mean Platelet Volume 9.5 fL (9.4-12.3); Monocyte (Absolute #) 0.67 x10^3/uL (0.24-0.86); Monocytes % 12.7 % (4.7-12.5); Neutrophil % 55.1 % (34.0-71.1); Platelet Count 168 x10^3/uL (182-369); Red Blood Count 3.82 x10^6/uL (3.93-5.22); Red Cell Distribution Width 21.8 % (11.7-14.4); White Blood Count 5.3 x10^3/uL (3.98-10.04)
--- NOTE | 2024-09-03 05:05 | PCM.NOTE ---
Date and Time: 09/03/24 0506 Subjective Assessment: HPI: Ms. LAGUERRE is a 84 year old female with a past medical history significant for hypertension, hyperlipidemia and hypothyroidism admitted 08/29/24 after a ground level fall at home. Patient stated she was at home washing dishes when she became weak and fell, hitting her head and landing on her left side with no LOC. Patient did endorse hip pain, and CT scan demonstrated a displaced left femoral neck fracture. CT head with microvascular white matter ischemic changes and senile changes. 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 She reports having some low blood pressure readings last month and had her outpatient bp meds reduced. Ortho consulted for evaluation of left femoral neck fracture. 08/30/24: Met with patient bedside s/p surgical repair of left femoral neck fracture. Patient states she has left eye itching since surgery but otherwise pain is controlled with numerical rating at 4/10. Discussed events that prepreempted fall, daughters present during interview - state patient has recently had changes to BP meds with metoprolol changed to coreg. She also recently started taking Ozempic and has not been eating much. As far as rehab- family would like swing bed if possible. Denies fever,cough, sob, cp, abdominal pain, WHITFIELD, dizziness, N/V/D. 08/31/24: Met with patient bedside. PODS#1 of left femoral neck fracture repair. Endorses pain is controlled at a 3/10 on numerical pain scale. Incision site is CDI. Labs and vitals are stable. Discussed case with Dr. Abdul (Ortho), he recommends discontinuation of Fosamax as the patient has been on this for 15 years. Plan for PT evaluation today and possible swing bed admission. Denies fever,cough, sob, cp, abdominal pain, WHITFIELD, dizziness, N/V/D. 09/01/24: PODS#2, patient doing well with PT/OT. Discussed labwork showing anemia. Will start venofer for iron deficiency. Most likely will need consult to hematology as OP to continue infusions. Denies fever,cough, sob, cp, abdominal pain, WHITFIELD, dizziness, N/V/D. 09/02: PODS#3, patient working well with PT/OT. Discussed labwork with Hgb at 7.5 today. Patient's family doctor requesting 2 units of blood which we will initiate. Plan for discharge home tomorrow or Friday with HHC and PT. No other complaints. Objective Exam Wound Assessment: Skin/Wound Assessment Wound/Incision Assessment Start: 08/30/24 00:20 Text: Status: Active Freq: Q6H Protocol: Document 09/03/24 02:00 LB (Rec: 09/03/24 02:58 LB [id number]) Wound/Incision Assessment Left Hip Wound Assessment Shift Assessment Wound Type Incision Wound Stage Non Pressure Wound Dressing Status Dry & Intact Drainage Amount None Primary Dressing AQUACEL Comment CDI Left Elbow Wound Assessment Shift Assessment Wound Type Skin Tear Wound Stage Non Pressure Wound Drainage Amount None General Appearance Open to air Wound Photo Photo Taken No Objective Data Vital Signs: Vital Signs - 24 hr Temp Pulse Resp BP Pulse Ox 09/03/24 03:30 70 14 09/03/24 01:00 77 14 09/02/24 21:00 99.1 F 99 H 18 144/68 09/02/24 17:00 97.9 F 87 16 121/56 94 L 09/02/24 16:00 97.3 F 87 18 121/56 94 L 09/02/24 11:49 97.3 F 79 16 108/52 91 L 09/02/24 07:26 99.0 F 91 H 16 128/59 92 L Pain Assessment - Last Documented Pain Intensity 10 Pain Scale Used FLACC Intake and Output: Intake & Output 08/31/24 09/01/24 09/02/24 09/03/24 11:59 11:59 11:59 11:59 Intake Total 4664 989 6468 440 Output Total 300 Balance 9273 556 2227 440 Weight 88.8 kg Lab Results: Lab Results-Last 24 Hours 09/02/24 09/02/24 09/02/24 Range/Units 05:04 05:04 10:00 WBC (3.98-10.04) x10^3/uL RBC (3.93-5.22) x10^6/uL Hgb 7.5 L (11.2-15.7) g/dL Hct 25.0 L (34.1-44.9) % MCV (79.4-94.8) fL MCH (25.6-32.2) pg MCHC (32.2-35.5) g/dL RDW (11.7-14.4) % Plt Count (182-369) x10^3/uL MPV (9.4-12.3) fL Gran % (34.0-71.1) % Immature Gran % (Auto) (0.001-0.429) % Nucleat RBC Rel Count (0.00-0.2) % Eos # (Auto) (0.04-0.36) x10^3/uL Immature Gran # (Auto) (0.001-0.031) x10^3u/L Absolute Lymphs (auto) (1.18-3.74) x10^3/uL Absolute Monos (auto) (0.24-0.86) x10^3/uL Absolute Nucleated RBC (0.00-0.012) x10^3u/L Lymphocytes % (19.3-51.7) % Monocytes % (4.7-12.5) % Eosinophils % (0.7-5.8) % Basophils % (0.1-1.2) % Absolute Granulocytes (1.56-6.13) x10^3/uL Basophils # (0.01-0.08) x10^3/uL Sodium 134 L (135-145) mmol/L Potassium 4.0 (3.5-5.1) mmol/L Chloride 101 (98-107) mmol/L Carbon Dioxide 28 (22-30) mmol/L Anion Gap 8.6 (5-15) MEQ/L BUN 19 H (7-17) mg/dL Creatinine 0.91 (0.52-1.04) mg/dL Estimated GFR 63.0 ML/MIN Glucose 93 (74-106) mg/dL Calcium 8.3 L (8.4-10.2) mg/dL Total Bilirubin 0.20 (0.2-1.3) mg/dL AST 26 (14-36) U/L ALT 10 (0-35) U/L Alkaline Phosphatase 53 (38-126) U/L Serum Total Protein 5.2 L (6.3-8.2) g/dL Albumin 2.7 L (3.5-5.0) g/dL ABO Group A Rh Factor NEGATIVE Antibody Screen NEGATIVE (NEGATIVE) Crossmatch COMPATIBLE (COMPATIBLE) 1109/02/24 09/03/24 Range/Units 10:00 19:50 04:50 WBC 5.3 (3.98-10.04) x10^3/uL RBC 3.82 L (3.93-5.22) x10^6/uL Hgb 10.1 L D 9.8 L (11.2-15.7) g/dL Hct 32.4 L 31.2 L (34.1-44.9) % MCV 81.7 (79.4-94.8) fL MCH 25.7 (25.6-32.2) pg MCHC 31.4 L (32.2-35.5) g/dL RDW 21.8 H (11.7-14.4) % Plt Count 168 L (182-369) x10^3/uL MPV 9.5 (9.4-12.3) fL Gran % 55.1 (34.0-71.1) % Immature Gran % (Auto) 0.6 H (0.001-0.429) % Nucleat RBC Rel Count 0.0 (0.00-0.2) % Eos # (Auto) 0.13 (0.04-0.36) x10^3/uL Immature Gran # (Auto) 0.03 (0.001-0.031) x10^3u/L Absolute Lymphs (auto) 1.49 (1.18-3.74) x10^3/uL Absolute Monos (auto) 0.67 (0.24-0.86) x10^3/uL Absolute Nucleated RBC 0.00 (0.00-0.012) x10^3u/L Lymphocytes % 28.3 (19.3-51.7) % Monocytes % 12.7 H (4.7-12.5) % Eosinophils % 2.5 (0.7-5.8) % Basophils % 0.8 (0.1-1.2) % Absolute Granulocytes 2.91 (1.56-6.13) x10^3/uL Basophils # 0.04 (0.01-0.08) x10^3/uL Sodium (135-145) mmol/L Potassium (3.5-5.1) mmol/L Chloride (98-107) mmol/L Carbon Dioxide (22-30) mmol/L Anion Gap (5-15) MEQ/L BUN (7-17) mg/dL Creatinine (0.52-1.04) mg/dL Estimated GFR ML/MIN Glucose (74-106) mg/dL Calcium (8.4-10.2) mg/dL Total Bilirubin (0.2-1.3) mg/dL AST (14-36) U/L ALT (0-35) U/L Alkaline Phosphatase (38-126) U/L Serum Total Protein (6.3-8.2) g/dL Albumin (3.5-5.0) g/dL ABO Group Rh Factor Antibody Screen (NEGATIVE) Crossmatch COMPATIBLE (COMPATIBLE) Multi-Disciplinary Progress Notes: Multi-Disciplinary Progress Notes 09/02/24 16:37 Occupational Therapy Note by Tammie (Raul#[id number])Jennifer OT TREATMENT 09/02/24 AT 10:20-11:05: MOOK PRESENTS IN BED UPON OT ARRIVAL AND REPORTS THAT SHE HAS NOT BEEN UP SINCE YESTERDAY EVENING. SHE REQUIRES MOD ASSIST FOR SUPINE<>SIT T/F WITH PRIMARY ASSIST FOR LEFT LE AND VERBAL CUES. SHE TRIES TO USE THE HOSPITAL BED FEATURES TO ASSIST IN HER TRANSFER; HOWEVER, SHE WILL NOT HAVE A HOSPITAL BED AT HOME. SHE REQUIRES MOD ASSIST FOR SIT<>STAND T/F FROM BED HEIGHT; MIN ASSIST THE SURFACE ELEVATED. SHE COMPLETES FUNCTIONAL MOBILITY TO BS IN FRONT OF SINK FOR SPONGE BATH (APPROXIMATELY 3 FEET). SHE THEN REQUIRES MAX ASSIST FOR HYGIENE OF BACK AND SACRAL REGION; SHE COMPLETES HYGIENE WITH POOR THOROUGNESS TO UB (COMPLETES 2 SIT<>STAND TRANSFERS WITH CGA) THROUGHOUT SPONGE BATH (ONLY UB COMPLETED). SHE THEN REPORTS INCREASED FATIGUE AND DIZZINESS FOLLOWING LIGHT ADL TASK; OPEN HEARTH HELPER IN ROOM TO ASSIST WITH TRANSFER BACK TO BED. MIN ASSIST FOR LB MANAGEMENT WITH TRANSFER INTO THE BED. SHE WAS TO RECEIVE BLOOD TRANSFUSION THIS AFTERNOON DUE TO LOW HGB. OT RECOMMENDED 12/05 CARE AND ASSIST WITH ALL MOBILITY AND ADLS AT DISCHARGE DUE TO HER CURRENT LEVEL OF ASSIST. SHE REPORTS THAT SHE WILL STAY IN BED MOST OF THE TIME AT HOME, BUT OT ENCOURAGES PATIENT TO SIT UP IN THE CHAIR AND FOCUS ON MOBILITY TO LIVING ROOM AND BATHROOM FOR ADLS. DISCUSSION HELD WITH CM AND PATIENT REGARDING FAMILY INVOLVEMENT WITH TREATMENT SESSION, TO REVIEW CURRENT T/F STATUS AND ADLS (HIP PRECAUTIONS). Initialized on 09/02/24 16:37 - END OF NOTE 09/02/24 13:10 Case Management Note by Annabel Mohan ATTEMPTED TO REACH IVANIA AGAIN TO DISCUSS [facility] OPT[facility]- LEFT VM Initialized on 09/02/24 13:10 - END OF NOTE 09/02/24 12:22 Case Management Note by Annabel Mohan PATIENT CONTINUE TO PLAN TO DC HOME. FAMILY REPORTS PATIENT WILL HAVE ASSISTANCE 12/05 AT HOME. FAMILY BORROWING A WALKER- PATIENT NOTIFIED THIS WILL NEED TO BE BROUGHT IN BY TOMORROW AM SO PHYSICAL THERAPY CAN MAKE SURE IT IS APPROPRIATE AND ADJUSTED FOR PATIENT. ATTEMPTED TO CALL IVANIA- UNABLE TO REACH IVANIA- S/W SHAUN(GRANDDAUGHTER)- SHE REPORTS THAT FAMILY DOES PLAN TO STAY WITH HER. SHE WAS INSTRUCTED THAT PHYSICAL THERAPY WOULD LIKE FAMILY TO COME IN FOR SOME TEACHING AND DEMONSTRATION OF HOW TO ASSIST PATIENT PROPERLY AT HOME. SHE VERIFIED UNDERSTANDING. [facility] UNABLE TO TAKE PATIENT- OUT OF NETWORK. CALLED IVANIA TO DISCUSS OTHER PROVIDERS IN NETWORK SUCH [facility], [facility], AND [facility]. LM Initialized on 09/02/24 12:22 - END OF NOTE Assessment/Plan (1) Fracture of femoral neck, left Current Visit: Yes Status: Acute Assessment & Plan: -?medication cause of fall -Secondary to fall with L femoral neck fracture - anticoags per ortho -Consult Ortho -surgical repair 08/30/24 -PT eval when able -Pt would like swing bed on discharge if able 08/31: -Discontinue Fosamax per Ortho recommendations -PT to evaluate -Swing bed if possible 09/01: -Unable to obtain swing bed authorization - patient would like [facility] in place of rehab stay Code(s): S72.002A - FRACTURE OF UNSP PART OF NECK OF LEFT FEMUR, INIT (2) Syncope and collapse Current Visit: No Status: Acute Assessment & Plan: -CT head CT head with microvascular whit matter ischemic changes and senile c hanges -check orthostatic vitals -tele -Check UA -Echo/carotid duplex -Med review - advised to discontinue ozempic -PT/OT consult 08/31: -Carotid negative for flow limiting stenosis -echo with EF of 64 % -no further episodes of dizziness Code(s): R55 - SYNCOPE AND COLLAPSE (3) Ground-level fall Current Visit: Yes Status: Acute Assessment & Plan: -see fractures above Code(s): W18.30XA - FALL ON SAME LEVEL, UNSPECIFIED, INITIAL ENCOUNTER (4) HTN (hypertension) Current Visit: Yes Status: Acute Assessment & Plan: -Episodes of hypotension reported a few months ago, resulting in bp med changes -Monitor BP closely -stable since admission -check orthos -resume home meds Code(s): I10 - ESSENTIAL (PRIMARY) HYPERTENSION (5) Hypothyroidism Current Visit: Yes Status: Acute Assessment & Plan: -TSH level WNL -continue home meds Anemia -Iron labs reviewed with iron sat at 11% - will start venofer- will need hematology as OP -Monitor and replace if hgb <7 -recheck H&H at noon 09/02: -CBC reviewed, hgb at 7.5 - will transfuse 2 units lprbc as requested by PCP -CBC 1 hr s/p transfusion Code(s): S72.002A - FRACTURE OF UNSP PART OF NECK OF LEFT FEMUR, INIT Code(s): S72.002A - FRACTURE OF UNSP PART OF NECK OF LEFT FEMUR, INIT (2) Syncope and collapse Current Visit: No Status: Acute Code(s): R55 - SYNCOPE AND COLLAPSE (3) Ground-level fall Current Visit: Yes Status: Acute Code(s): W18.30XA - FALL ON SAME LEVEL, UNSPECIFIED, INITIAL ENCOUNTER (4) HTN (hypertension) Current Visit: Yes Status: Acute Code(s): I10 - ESSENTIAL (PRIMARY) HYPERTENSION (5) Hypothyroidism Current Visit: Yes Status: Acute Code(s): E03.9 - HYPOTHYROIDISM, UNSPECIFIED (6) Anemia Current Visit: Yes Status: Acute Code(s): D64.9 - ANEMIA, UNSPECIFIED
[2024-09-03 05:18] LABS: ALBUMIN 2.6 g/dL (3.5-5.0); BILIRUBIN,TOTAL 0.5 mg/dL (0.2-1.3); Calcium 8.3 mg/dL (8.4-10.2); Creatinine 1 0.86 mg/dL (0.52-1.04); EST GLOMERULAR FILTRATION RATE 67.4 ML/MIN; Potassium 3.9 mmol/L (3.5-5.1); Total Protein 5.1 g/dL (6.3-8.2)
[2024-09-03] MEDS: Sodium Chloride 0.9% 1000 ML 1,000 ML IV SCH (09:14)
[2024-09-03] MEDS: BENADRYL 25 MG CAPSULE PO PRN (10:10)
--- NOTE | 2024-09-03 11:35 | PCM.DS ---
Discharge Summary Date of Admission: 08/29/24 23:13 Date of Discharge: 09/03/24 Admitting Physician: CHAKA OLSEN MD Consults: Consults on Case 08/30/24 07:26 Consult Ortho ROUTINE Primary Care Provider: SEYMOUR COSBY Allergies Allergies No Known Drug Allergies Allergy (Verified 08/29/24 20:39) Hospital Summary - Hospital Course Hospital Course: Ms. LAGUERRE is a 84 year old female with a past medical history significant for hypertension, hyperlipidemia and hypothyroidism admitted 08/29/24 after a ground level fall at home. Patient stated she was at home washing dishes when she became weak and fell, hitting her head and landing on her left side with no LOC. Patient did endorse hip pain, and CT scan demonstrated a displaced left femoral neck fracture. CT head with microvascular white matter ischemic changes and senile changes. 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 She reports having some low blood pressure readings last month and had her outpatient bp meds reduced. Ortho consulted for evaluation of left femoral neck fracture. Patient also recently started on Ozempic with resultant poor oral intake. Ortho consulted and underwent left hip delfin-replacement arthroplasty 08/30/24 . She has been working well with PT while IP and pain has been controlled. Patient was requesting swing bed at discharge but insurance denied stay. Patient declines rehab stay and would like to discharge home. She will have 12/05 care with assist from family and [facility]. Patient did require a 2 unit blood transfusion 09/02/24 and venofer iron infusion. Hemoglobin is now stable. Advised patient to see OP hematology for her chronic iron deficiency - she declines at this time. Would like to just take iron supplementation for now. Advised close follow up with ortho and PCP next week with CBC. Advised stool softner - patient states she has already takes one daily. Patient is medically stable for discharge. Ortho recommends discontinuation of fosamax. I have advised discontinuation of ozempic. Discharge Note New Diagnosis: left femoral neck fracture New Medications:ASA 325mg/ [place]/ferrous sulfate/narcan -discontinue fosamax and ozempic Follow Up: PCP/ortho Latest Assessment & Plan (1) Fracture of femoral neck, left Current Visit: Yes Status: Acute Assessment & Plan: -?medication cause of fall -Secondary to fall with L femoral neck fracture - anticoags per ortho -Consult Ortho -surgical repair 08/30/24 -PT eval when able -Pt would like swing bed on discharge if able 08/31: -Discontinue Fosamax per Ortho recommendations -PT to evaluate -Swing bed if possible 09/01: -Unable to obtain swing bed authorization - patient would like [facility] in place of rehab stay 09/03: -Pain controlled -Medically stable for discharge Code(s): S72.002A - FRACTURE OF UNSP PART OF NECK OF LEFT FEMUR, INIT (2) Syncope and collapse Current Visit: No Status: Acute Assessment & Plan: -CT head CT head with microvascular whit matter ischemic changes and senile changes -check orthostatic vitals -tele -Check UA -Echo/carotid duplex -Med review - advised to discontinue ozempic -PT/OT consult 08/31: -Carotid negative for flow limiting stenosis -echo with EF of 64 % -no further episodes of dizziness 09/03: -No further events -BP stable throughout hospital course -Advised discontinuation of Ozempic Code(s): R55 - SYNCOPE AND COLLAPSE (3) Ground-level fall Current Visit: Yes Status: Acute Assessment & Plan: -see fractures above Code(s): W18.30XA - FALL ON SAME LEVEL, UNSPECIFIED, INITIAL ENCOUNTER (4) HTN (hypertension) Current Visit: Yes Status: Acute Assessment & Plan: -Episodes of hypotension reported a few months ago, resulting in bp med changes -Monitor BP closely -stable since admission -check orthos -resume home meds Code(s): I10 - ESSENTIAL (PRIMARY) HYPERTENSION (5) Hypothyroidism Current Visit: Yes Status: Acute Assessment & Plan: -TSH level WNL -continue home meds Anemia -Iron labs reviewed with iron sat at 11% - will start venofer- will need hematology as OP -Monitor and replace if hgb <7 -recheck H&H at noon 09/02: -CBC reviewed, hgb at 7.5 - will transfuse 2 units lprbc as requested by PCP -CBC 1 hr s/p transfusion 09/03: -hgb stable at 9.8 I spent 35 minutes [id number] with the patient on the day of discharge performing discharge exam, discussing hospital stay and discharge instructions with patient and caregivers, preparation of discharge records, prescriptions & referral forms and addressing any questions/concerns the patient had as documen ruby above. - Vitals & Intake/Output Vital Signs: Vital Signs Temperature 97.3 F 09/03/24 07:00 Pulse Rate 74 09/03/24 07:00 Respiratory Rate 18 09/03/24 07:00 Blood Pressure 156/68 09/03/24 07:00 O2 Sat by Pulse Oximetry 95 09/03/24 07:00 Intake & Output: Intake & Output 08/31/24 09/01/24 09/02/24 09/03/24 11:59 11:59 11:59 11:59 Intake Total 4836 303 5528 560 Output Total 300 Balance 8069 786 1930 560 Weight 88.8 kg - Lab Result Diagrams: 09/03/24 04:50 09/03/24 04:50 Lab Results-Last 24 Hrs: Lab Results-Last 24 Hours 09/02/24 09/03/24 09/03/24 Range/Units 19:50 04:50 04:50 WBC 5.3 (3.98-10.04) x10^3/uL RBC 3.82 L (3.93-5.22) x10^6/uL Hgb 10.1 L D 9.8 L (11.2-15.7) g/dL Hct 32.4 L 31.2 L (34.1-44.9) % MCV 81.7 (79.4-94.8) fL MCH 25.7 (25.6-32.2) pg MCHC 31.4 L (32.2-35.5) g/dL RDW 21.8 H (11.7-14.4) % Plt Count 168 L (182-369) x10^3/uL MPV 9.5 (9.4-12.3) fL Gran % 55.1 (34.0-71.1) % Immature Gran % (Auto) 0.6 H (0.001-0.429) % Nucleat RBC Rel Count 0.0 (0.00-0.2) % Eos # (Auto) 0.13 (0.04-0.36) x10^3/uL Immature Gran # (Auto) 0.03 (0.001-0.031) x10^3u/L Absolute Lymphs (auto) 1.49 (1.18-3.74) x10^3/uL Absolute Monos (auto) 0.67 (0.24-0.86) x10^3/uL Absolute Nucleated RBC 0.00 (0.00-0.012) x10^3u/L Lymphocytes % 28.3 (19.3-51.7) % Monocytes % 12.7 H (4.7-12.5) % Eosinophils % 2.5 (0.7-5.8) % Basophils % 0.8 (0.1-1.2) % Absolute Granulocytes 2.91 (1.56-6.13) x10^3/uL Basophils # 0.04 (0.01-0.08) x10^3/uL Sodium 135 (135-145) mmol/L Potassium 3.9 (3.5-5.1) mmol/L Chloride 102 (98-107) mmol/L Carbon Dioxide 29 (22-30) mmol/L Anion Gap 8.0 (5-15) MEQ/L BUN 17 (7-17) mg/dL Creatinine 0.86 (0.52-1.04) mg/dL Estimated GFR 67.4 ML/MIN Glucose 97 (74-106) mg/dL Calcium 8.3 L (8.4-10.2) mg/dL Total Bilirubin 0.50 (0.2-1.3) mg/dL AST 25 (14-36) U/L ALT 11 (0-35) U/L Alkaline Phosphatase 51 (38-126) U/L Serum Total Protein 5.1 L (6.3-8.2) g/dL Albumin 2.6 L (3.5-5.0) g/dL - Procedures and Test Procedures and Tests throughout Hospitalization: Therapy Orders & Screens 08/30/24 13:55 PT Eval & Treat ( Order) ONCE Reason for Eval:: S&D THRA Rehab WBA LLE Gait Training, Gait strengthening OT ADLs Diagnosis: near syncope hip fracture Incentive Spirometry TID Comment: Diagnosis: near syncope hip fracture 08/31/24 09:01 OT Eval and Treat ( Order) ROUTINE Comment: Physician Instructions: Reason For Exam: Diagnosis: FALL, L HIP FX, SYNCOPE Discharge Exam General Appearance: no apparent distress Neurologic Exam: alert, oriented x 3, cooperative Eye Exam: PERRL Ears, Nose, Throat Exam: normal ENT inspection Neck Exam: normal inspection Respiratory Exam: normal breath sounds, lungs clear Cardiovascular Exam: regular rate/rhythm, normal heart sounds Gastrointestinal/Abdomen Exam: soft, normal bowel sounds Pelvic Exam: deferred Rectal Exam: deferred Back Exam: normal inspection Extremity Exam: other (Left hip with surgical dressing) Skin Exam: other (ecchymosis to left face) Wound Assessment: Skin/Wound Assessment Wound/Incision Assessment Start: 08/30/24 00:20 Text: Status: Active Freq: Q6H Protocol: Document 09/03/24 08:00 JV (Rec: 09/03/24 09:40 JV [id number]) Wound/Incision Assessment Left Hip Wound Assessment Shift Assessment Wound Type Incision Wound Stage Non Pressure Wound Dressing Status Dry & Intact Drainage Amount None Primary Dressing AQUACEL Comment CDI. Remaisn true Left Elbow Wound Assessment Shift Assessment Wound Type Skin Tear Wound Stage Non Pressure Wound Drainage Amount None General Appearance Open to air Wound Photo Photo Taken No Final Diagnosis/Problem List - Final Discharge Diagnosis/Problem (1) Fracture of femoral neck, left Current Visit: Yes Status: Acute Code(s): S72.002A - FRACTURE OF UNSP PART OF NECK OF LEFT FEMUR, INIT (2) Syncope and collapse Current Visit: No Status: Resolved Code(s): R55 - SYNCOPE AND COLLAPSE (3) Ground-level fall Current Visit: Yes Status: Acute Code(s): W18.30XA - FALL ON SAME LEVEL, UNSPECIFIED, INITIAL ENCOUNTER (4) HTN (hypertension) Current Visit: Yes Status: Chronic Code(s): I10 - ESSENTIAL (PRIMARY) HY PERTENSION (5) Hypothyroidism Current Visit: Yes Status: Chronic Code(s): E03.9 - HYPOTHYROIDISM, UNSPEC IFIED (6) Anemia Current Visit: Yes Status: Chronic Code(s): D64.9 - ANEMIA, UNSPECIFIED - Discharge Discharge Date: 09/03/24 ([facility]) Disposition: HOME HEALTH SERVICE Condition: Stable Prescriptions: New Aspirin EC 325 mg [Ecotrin 325 MG] 325 mg PO DAILY 14 Days #14 tablet Ferrous Sulfate 325 mg [Feosol 325 mg] 325 mg PO DAILY 30 Days #30 tablet Hydrocodone/Acetaminophen [[place] 10-325 mg] 1 tablet PO Q4H PRN PRN 6 Days #18 tablet MDD 6 PRN Reason: Severe Pain Naloxone HCl [Narcan] See Rx Instructions .ROUTE .COMPLEX 30 Days #1 kit Continue Amlodipine Besylate [Norvasc] 2.5 mg PO HS Levothyroxine Sodium 50 mcg PO DAILY Latanoprost [Xalatan] 1 ml OP HS Vit C/E/Zn/Coppr/Lutein/Zeaxan [Preservision Areds 2 Chew Tab] 1 each PO DAILY Gabapentin 300 mg PO DAILY Rosuvastatin Calcium 10 mg PO DAILY Carvedilol 12.5 mg [Coreg 12.5 mg] 2 tab PO BID Additional Instructions: [facility] HAS BEEN SET UP FOR YOU. THEY WILL CONTACT YOU WITHIN A DAY OR TWO TO COME SEE YOU. THEIR PHONE NUMBER IS [phone] IF YOU NEED ANYTHING BEFORE THEIR FIRST VISIT Follow up with: SEYMOUR COSBY [Primary Care Provider] - 09/20/24 1:45 pm LAURYN BUSH NP [NON-STAFF PHY W/O PRIVILEGES] - 09/13/24 11:00 am
[2024-09-03 12:39] VITALS: RESP 20
[2024-09-03 18:03] VITALS: BP 136/63; PULSE 80; TEMP 97.5; O2SAT 96
== END 2024-09-03 17:28 | disposition home health service (06) | DRG 522 ==
LOC: ED 20:16 → OBSVTOIN 23:13 → MED SURG 23:13
PROVIDERS: ADMIT Internal Medicine Nephrology; ATTEND Internal Medicine Nephrology
PROC: 0SRB0J9 Replacement of Left Hip Joint with Synthetic Substitute, Cemented, Open Approach (ICD-10-PCS; principal; 2024-08-30)
DX: S72.024A Nondisplaced fracture of epiphysis (separation) (upper) of right femur, initial encounter for closed fracture (principal); R55 Syncope and collapse; W18.30XA Fall on same level, unspecified, initial encounter; I10 Essential (primary) hypertension; E03.9 Hypothyroidism, unspecified; E78.5 Hyperlipidemia, unspecified; D64.9 Anemia, unspecified; Z79.899 Other long term (current) drug therapy
CPT/HCPCS: 27130; 36415; 36430; 70450; 72192; 73502; 80053; 82607; 82728; 82746; 83540; 83550; 84134; 84443; 85014; 85018; 85025; 85027; 86850; 86900; 86901; 86922; 93005; 93306; 93880; 96374; 96375; 97110; 97161; 97530; 97535; 99283; P9016; Q3014; 76937; 99100; 99140; 99285; C1713; C1776; J0690; J1100; J1171; J1756; J2371; J2405; J2704; J2795; J3010; A9270-GY

== ENCOUNTER 2024-12-27 02:36 | Observation (INO) | payer MEDICARE ==
[2024-12-27] MEDS: CEFAZOLIN 2 GM/100 ML NaCl 2 GM/100 ML IVPB IV SCH (06:24)
[2024-12-27] MEDS: TRANEXAMIC 1,000 MG/100ML-NACL 1,000 MG/100 ML PIGGYBACK IV ONE (06:24)
[2024-12-27] MEDS: NEURONTIN PO ONE (06:24)
[2024-12-27] MEDS: Lactated Ringers 1,000 ML IV SCH (06:24)
[2024-12-27] MEDS: TYLENOL EXTRA STRENGTH 500 MG PO ONE (06:25)
[2024-12-27] MEDS: celeBREX 100 MG PO ONE (06:25)
[2024-12-27] MEDS ORDERED: VANCOCIN INJECTION IV ONE ×2 (06:47→09:00)
[2024-12-27] MEDS ORDERED: Xylocaine-Mpf 2% 5 Ml Vial ONE ×3 (06:59→08:43)
[2024-12-27] MEDS ORDERED: propofoL IV ONE ×3 (07:00→10:30)
[2024-12-27] MEDS ORDERED: SUBLIMAZE 100 MCG/2 ML ONE ×2 (07:01→07:43)
[2024-12-27] MEDS ORDERED: Marcaine 0.5%/Epinephrine 10 ML ONE (07:33)
[2024-12-27] MEDS ORDERED: Versed 2 MG/2 ML Injection ONE (07:35)
[2024-12-27] MEDS ORDERED: Sensorcaine 0.25% 10 ML ONE ×2 (07:35→07:39)
[2024-12-27] MEDS ORDERED: Epinephrine Preservative Free 1 MG/ML ONE (07:37)
--- NOTE | 2024-12-27 12:11 | XRAY ---
Indication: Knee replacement. Comparison: None AP/crosstable lateral left knee demonstrates intact total knee arthroplasty with postoperative soft tissue swelling, effusion, and soft tissue emphysema. Elsewhere osteopenia. No other bony, articular, or soft tissue abnormalities.
[2024-12-27] MEDS ORDERED: NON-FORMULARY ITEM (Naloxone Hcl [Narcan] 4 MG Spray) SCH ×2 (12:30→13:00)
[2024-12-27] MEDS ORDERED: Cyclobenzaprine 10 MG PO SCH ×2 (12:30→13:00)
[2024-12-27] MEDS ORDERED: Lexapro PO SCH ×2 (12:30→13:00)
[2024-12-27] MEDS ORDERED: VIT E PO SCH ×2 (12:30→13:00)
[2024-12-27] MEDS ORDERED: UBIDECARENONE PO SCH ×2 (12:30→13:00)
[2024-12-27] MEDS ORDERED: VIT E MIX PO SCH ×2 (12:30→13:00)
[2024-12-27] MEDS ORDERED: [UNRECOGNIZED DRUG - OTHER] PO SCH ×2 (12:30→13:00)
[2024-12-27] MEDS: Hydromorphone 1 mg/ml Injection IV PRN (12:48)
[2024-12-27] MEDS ORDERED: MEDICATION INTERVENTION MC SCH ×5 (13:15→13:30)
[2024-12-27] MEDS: Sodium Chloride 0.9% 1000 ML 1,000 ML IV SCH (14:36)
--- NOTE | 2024-12-27 16:10 | PCM.HP ---
History of Present Illness - Chief Complaint Chief Complaint: Total left knee replacement Date: 12/27/24 History of Present Illness: is a 84 year old female with PMHX of hyperlipidemia, glaucome, HTN, and hypothyroidism. She was admitted today post op Left total knee replacement done by ortho Dr. Abdul. She rates her pain a 6/10. She states she has been riding a stationary bike for a few weeks for an hour to prepe for this surgery so she can do well post op. She brought in her own polar ice machine for left knee and has this in place. She has already been up with PT and did well she reports. She would like a swing bed at the hospital if she has to stay for an extended period and case management aware. She denies any further concerns at this time. - Review of Systems Constitutional: No Fever, No Chills Eyes: No Symptoms Ears, Nose, & Throat: No Symptoms Respiratory: No Cough, No Short Of Breath Cardiac: No Chest Pain, No Edema, No Syncope Abdominal/Gastrointestinal: No Abdominal Pain, No Nausea, No Vomiting, No Diarrhea Genitourinary Symptoms: No Dysuria Musculoskeletal: Joint Pain (left knee), No Back Pain, No Neck Pain Skin: No Rash Neurological: No Symptoms, No Dizziness, No Focal Weakness, No Sensory Changes Psychological: No Symptoms Endocrine: No Symptoms Hematologic/Lymphatic: No Symptoms Immunological/Allergic: No Symptoms Medications & Allergies Home Medications: Home Medication List Latanoprost [Xalatan] 1 ml OP HS 04/11/22 [History Confirmed 12/02/24] Levothyroxine Sodium 50 mcg PO DAILY 04/11/22 [History Confirmed 12/02/24] Gabapentin 300 mg PO DAILY 08/29/24 [History Confirmed 12/02/24] Rosuvastatin Calcium 10 mg PO DAILY 08/29/24 [History Confirmed 12/02/24] Vit C/E/Zn/Coppr/Lutein/Zeaxan [Preservision Areds 2 Chew Tab] 1 each PO DAILY 08/29/24 [History Confirmed 12/02/24] Aspirin EC 325 mg [Ecotrin 325 MG] 325 mg PO DAILY 14 Days #14 tablet 09/03/24 [Rx Confirmed 12/27/24] Ferrous Sulfate 325 mg [Feosol 325 mg] 325 mg PO DAILY 30 Days #30 tablet 09/03/24 [Rx Confirmed 12/02/24] Hydrocodone/Acetaminophen [[place] 10-325 mg] 1 tablet PO Q6H PRN 3 Days #12 tablet MDD 4 09/03/24 [Rx Confirmed 12/02/24] Naloxone HCl [Narcan] See Rx Instructions .ROUTE .COMPLEX 30 Days #1 kit 09/03/24 [Rx Confirmed 12/02/24] Cyclobenzaprine HCl 10 mg [Cyclobenzaprine 10 MG] 10 mg PO UD 12/02/24 [History Confirmed 12/02/24] Escitalopram Oxalate [Lexapro] 10 mg PO UD 12/02/24 [History Confirmed 12/02/24] Loratadine 10 mg [Claritin 10 mg] 10 mg PO UD 12/02/24 [History Confirmed 12/02/24] Tramadol HCl 50 mg [Ultram 50 mg] 50 mg PO UD 12/02/24 [History Confirmed 12/02/24] Ubidecarenone/Vit E/Vit E Mix [Co-Enzyme Q10 100 mg Softgel] 1 each PO UD 12/02/24 [History Confirmed 12/02/24] Oxycodone HCl/Acetaminophen [Percocet 5-325 mg Tablet] 1 mg PO Q4-6HPRN PRN #24 tablet MDD 8 12/27/24 [Rx] Allergies/Adverse Reactions: Allergies Allergy/AdvReac Type Severity Reaction Status Date / Time No Known Drug Allergies Allergy Verified 12/27/24 13:03 - Past Medical History Past Medical History: Yes Neurological History: No Pertinent History ENT History: Glaucoma Cardiac History: High Cholesterol, Hypertension Respiratory History: No Pertinent History Endocrine Medical History: Hypothyroidism Musculoskelatal History: Fractures GI Medical History: No Pertinent History History: No Pertinent History Pyscho-Social History: No Pertinent History Reproductive Disorders: No Pertinent History Comment: Pelvis fracture and knee cap, - Past Surgical History Past Surgical History: Yes Neuro Surgical History: No Pertinent History Cardiac History: No Pertinent History Respiratory Surgery: No Pertinent History GI Surgical History: Cholecystectomy Genitourinary Surgical Hx: No Pertinent History Musculskeletal Surgical Hx: Joint Replacement Female Surgical History: No Pertinent History Other Surgical History: COLONOSCPY,left hip, left total knee Significant Family History: no pertinent family hx - Social History Smoking Status: Never smoker Exposure to second hand smoke: No Alcohol: None Drug Use: none - Social Determinants of Health Will the patient participate in the screening: Yes Do you worry about a steady place to live?: No Do you have any problems with any of the following?: No known problems In the past 12 months,have you had to go without utilities?: No Have you or anyone in your house had to go without enough: No Transportation Issues: No Has anyone in your support network made you feel unsafe?: No Does the patient want assistance with any of the above?: No - Physical Exam Vital Signs: Vital Signs - 24 hr Temp Pulse Resp BP BP Pulse Ox 12/27/24 14:16 97.1 F 107 H 18 165/68 98 12/27/24 13:15 97.1 F 107 H 18 165/68 98 12/27/24 12:15 97.1 F 107 H 18 165/68 98 12/27/24 12:14 97.1 F 107 H 18 165/68 98 12/27/24 12:05 97.1 F 77 20 165/68 98 12/27/24 06:31 97.6 F 83 18 141/79 99 12/27/24 06:22 97.6 F 83 18 141/79 99 General Appearance: no apparent distress, alert Neurologic Exam: alert, oriented x 3, cooperative, normal mood/affect, nml cerebellar function, nml station & gait, sensation nml, No motor deficits Eye Exam: PERRL/EOMI, eyes nml inspection Ears, Nose, Throat Exam: normal ENT inspection, TMs normal, pharynx normal, moist mucous membranes Neck Exam: normal inspection, non-tender, supple, full range of motion Respiratory Exam: normal breath sounds, lungs clear, No respiratory distress Cardiovascular Exam: regular rate/rhythm, normal heart sounds, normal peripheral pulses Gastrointestinal/Abdomen Exam: soft, normal bowel sounds, No tenderness, No mass Back Exam: normal inspection, normal range of motion, No CVA tenderness, No vertebral tenderness Extremity Exam: normal inspection, normal range of motion, pelvis stable, tenderness (left knee post op surgery) Skin Exam: normal color, warm, dry, No rash Wound Assessment: Skin/Wound Assessment Wound/Incision Assessment Start: 12/27/24 14:31 Text: Status: Active Freq: Q6H Protocol: Document 12/27/24 14:31 AR (Rec: 12/27/24 14:32 AR [id number]) Wound/Incision Assessment Left Knee Wound Assessment Admission Wound Type Incision Wound Stage Non Pressure Wound Dressing Status Dry & Intact Drainage Amount None Surrounding Tissue [place] Lymphatic Exam: No adenopathy Results - Radiology Impressions Radiology Exams & Impressions: Radiology Procedures Category Date Time Status KNEE (1 OR 2 VIEW) Routine Exams 12/27/24 11:31 Completed Assessment/Plan (1) Status post total left knee replacement Current Visit: Yes Status: Acute Assessment & Plan: - POD #1 - With Ortho- Dr. Abdul - Pt wanting swing bed if possible - Narcotic pain meds PRN - Use home polar ice machine. - PT/OT eval Code(s): Z96.652 - PRESENCE OF LEFT ARTIFICIAL KNEE JOINT (2) Essential (primary) hypertension Current Visit: No Status: Acute Assessment & Plan: - BP elevated - Pt states she used to take BP medication prior to hip surgery then stopped by PCP after as Bp was doing well - Bp may be elevated 2:2 pain and she is refusing pain meds at this time and wants to wait. - She is refusing to be restarted on BP medication per nurse - PRN IV BP med started if needed. Code(s): I10 - ESSENTIAL (PRIMARY) HYPERTENSION (3) Hypothyroidism Current Visit: No Status: Chronic Assessment & Plan: - Continue Synthroid Code(s): E03.9 - HYPOTHYROIDISM, UNSPECIFIED (4) Hyperlipidemia Current Visit: Yes Status: Chronic Assessment & Plan: - Continue statin VTE: will discuss with ortho Next of KIN: daughter D/C plan:1-2 days Code status: Full Code(s): E78.5 - HYPERLIPIDEMIA, UNSPECIFIED Telemedicine Encounter - Telemedicine Encounter Telemedicine Encounter: "The entirety of this encounter was performed via Telemedicine" This visit was performed using real-time audio and video connection between my location and thepatients locationwith the assistance of a surrogateat the patients location. Written or verbal consent was obtained from the patient/guardian to perform this visit usingnchrRudy[employer] Catering Companytelemedicine technology. Any patient questions regarding the telemedicine interaction were answered.
[2024-12-27] MEDS ORDERED: PERCOCET TABLET 5/325MG PO PRN (16:20)
[2024-12-27] MEDS ORDERED: APRESOLINE 20 MG/ML INJ IV PRN (16:28)
[2024-12-27] MEDS ORDERED: Narcan 0.4 MG/ML IV PRN (16:30)
[2024-12-27] MEDS: Oxy-IR 5 MG PO PRN (16:31)
[2024-12-27] MEDS ORDERED: Xalatan OP SCH ×2 (22:00)
[2024-12-27] MEDS: Hydromorphone 1 mg/ml Injection IV ONE (22:25)
[2024-12-28] MEDS: Hydromorphone 1 mg/ml Injection IV ONE (02:52)
[2024-12-28 05:14] LABS: Hematocrit 32.8 % (34.1-44.9); Hemoglobin 10.2 g/dL (11.2-15.7); Mean Cell Volume 91.9 fL (79.4-94.8); Mean Corpuscular Hemoglobin 28.6 pg (25.6-32.2); Mean Corpuscular Hgb Concent. 31.1 g/dL (32.2-35.5); Mean Platelet Volume 9.7 fL (9.4-12.3); Platelet Count 196 x10^3/uL (182-369); Red Blood Count 3.57 x10^6/uL (3.93-5.22); Red Cell Distribution Width 14.3 % (11.7-14.4); White Blood Count 6.5 x10^3/uL (3.98-10.04)
[2024-12-28 06:02] LABS: ALBUMIN 3.5 g/dL (3.5-5.0); ANION GAP 10.5 MEQ/L (5-15); BILIRUBIN,TOTAL 0.5 mg/dL (0.2-1.3); Calcium 8.9 mg/dL (8.4-10.2); Creatinine 1 0.82 mg/dL (0.52-1.04); EST GLOMERULAR FILTRATION RATE 71.4 ML/MIN; Potassium 4.7 mmol/L (3.5-5.1); Total Protein 5.8 g/dL (6.3-8.2)
[2024-12-28] MEDS ORDERED: [UNRECOGNIZED DRUG - OTHER] PO SCH ×2 (10:00)
[2024-12-28] MEDS ORDERED: NON-FORMULARY ITEM (Rosuvastatin Calcium [Rosuvastatin Calcium] 10 MG Tablet) PO SCH ×2 (10:00)
[2024-12-28] MEDS ORDERED: NON-FORMULARY ITEM (Levothyroxine Sodium [Levothyroxine Sodium] 50 MCG Capsule) PO SCH ×2 (10:00)
[2024-12-28] MEDS ORDERED: NEURONTIN PO SCH (10:00)
[2024-12-28] MEDS: CLARITIN 10 MG PO SCH (10:23)
[2024-12-28] MEDS: SYNTHROID 50 MCG PO SCH (10:24)
[2024-12-28] MEDS: FEOSOL 325 MG PO SCH (10:24)
[2024-12-28] MEDS: NORCO 10-325 MG PO PRN (10:24)
[2024-12-28] MEDS: Ocuvite Tablet PO SCH (10:24)
[2024-12-28] MEDS: ZOCOR 20MG PO SCH (10:24)
[2024-12-28] MEDS: Ecotrin 325 MG PO SCH (10:24)
[2024-12-28] MEDS: NEURONTIN PO SCH (10:24)
--- NOTE | 2024-12-28 11:45 | PCM.NOTE ---
Date and Time: 12/28/24 1140 Subjective Assessment: 12/27/24 is a 84 year old female with PMHX of hyperlipidemia, glaucome, HTN, and hypothyroidism. She was admitted today post op Left total knee replacement done by ortho Dr. Abdul. She rates her pain a 6/10. She states she has been riding a stationary bike for a few weeks for an hour to prepe for this surgery so she can do well post op. She brought in her own polar ice machine for left knee and has this in place. She has already been up with PT and did well she reports. She would like a swing bed at the hospital if she has to stay for an extended period and case management aware. She denies any further concerns at this time. 12/28/24 Pt resting in bed. She had quite a bit of pain last night and overnight hospitalist called x2 for IV Dilaudid. Pt was every tearful per staff and provider. Pt states she did not get any sleep last night d/t her pain level. Discussed pt case with ortho- Dr. Abdul and he is going to change her pain meds to [place] as this has worked well for her in the past. Bp improved today. Pain well controlled this morning. Case management to determine if she qualifies for swing bed. Continue working with PT/OT. She denies any further concerns at this time. - Review of Systems Constitutional: No Fever, No Chills Eyes: No Symptoms Ears, Nose, & Throat: No Symptoms Respiratory: No Cough, No Short Of Breath Cardiac: No Chest Pain, No Edema, No Syncope Abdominal/Gastrointestinal: No Abdominal Pain, No Nausea, No Vomiting, No Diarrhea Genitourinary Symptoms: No Dysuria Musculoskeletal: Joint Pain (Left knee), No Back Pain, No Neck Pain Skin: No Rash Neurological: No Dizziness, No Focal Weakness, No Sensory Changes Psychological: No Symptoms Endocrine: No Symptoms Hematologic/Lymphatic: No Symptoms Immunological/Allergic: No Symptoms Objective Exam General Appearance: no apparent distress, alert Neurologic Exam: alert, oriented x 3, cooperative, normal mood/affect, nml cerebellar function, sensation nml, No motor deficits Skin Exam: normal color, warm, dry Wound Assessment: Skin/Wound Assessment Wound/Incision Assessment Start: 12/27/24 14:31 Text: Status: Active Freq: Q6H Protocol: Document 12/28/24 02:00 KS (Rec: 12/28/24 04:32 KS [id number]) Wound/Incision Assessment Left Knee Wound Assessment Shift Assessment Wound Type Incision Wound Stage Non Pressure Wound Dressing Status Dry & Intact Drainage Amount None Surrounding Tissue [place] Eye Exam: PERRL, EOMI, eyes nml inspection Ears, Nose, Throat Exam: normal ENT inspection, pharynx normal, moist mucous membranes Neck Exam: normal inspection, non-tender, supple, full range of motion Respiratory Exam: normal breath sounds, lungs clear, No respiratory distress Cardiovascular Exam: regular rate/rhythm, normal heart sounds Gastrointestinal/Abdomen Exam: soft, No tenderness, No mass Extremity Exam: normal inspection, normal range of motion, tenderness (Left knee) Back Exam: normal inspection, normal range of motion, No CVA tenderness, No vertebral tenderness Pelvic Exam: deferred Rectal Exam: deferred Objective Data Vital Signs: Vital Signs - 24 hr Temp Pulse Resp BP BP Pulse Ox 12/28/24 07:27 97.6 F 107 H 17 135/65 97 12/28/24 04:00 97.7 F 100 H 16 125/87 96 12/28/24 00:00 97 F 99 H 18 148/74 96 12/27/24 20:00 98.1 F 96 H 18 164/83 96 12/27/24 16:00 97.9 F 92 H 18 137/70 98 12/27/24 14:16 97.1 F 107 H 18 165/68 98 12/27/24 13:15 97.1 F 107 H 18 165/68 98 12/27/24 12:15 97.1 F 107 H 18 165/68 98 12/27/24 12:14 97.1 F 107 H 18 165/68 98 12/27/24 12:05 97.1 F 77 20 165/68 98 Pain Assessment - Last Documented Pain Intensity [Left] 2 Pain Intensity [Left Knee] 8 Pain Intensity 5 Pain Scale Used 0-10 Pain Scale Intake and Output: Intake & Output 12/25/24 12/26/24 12/27/24 12/28/24 10:59 11:59 11:59 11:59 Intake Total 1200 Balance 1200 Weight 82.1 kg 178 kg Lab Results: Lab Results-Last 24 Hours 12/28/24 12/28/24 Range/Units 05:00 05:00 WBC 6.5 (3.98-10.04) x10^3/uL RBC 3.57 L (3.93-5.22) x10^6/uL Hgb 10.2 L (11.2-15.7) g/dL Hct 32.8 L (34.1-44.9) % MCV 91.9 (79.4-94.8) fL MCH 28.6 (25.6-32.2) pg MCHC 31.1 L (32.2-35.5) g/dL RDW 14.3 (11.7-14.4) % Plt Count 196 (182-369) x10^3/uL MPV 9.7 (9.4-12.3) fL Sodium 135 (135-145) mmol/L Potassium 4.7 (3.5-5.1) mmol/L Chloride 103 (98-107) mmol/L Carbon Dioxide 26 (22-30) mmol/L Anion Gap 10.5 (5-15) MEQ/L BUN 24 H (7-17) mg/dL Creatinine 0.82 (0.52-1.04) mg/dL Estimated GFR 71.4 ML/MIN Glucose 116 H (74-106) mg/dL Calcium 8.9 (8.4-10.2) mg/dL Total Bilirubin 0.50 (0.2-1.3) mg/dL AST 33 (14-36) U/L ALT 15 (0-35) U/L Alkaline Phosphatase 69 (38-126) U/L Serum Total Protein 5.8 L (6.3-8.2) g/dL Albumin 3.5 (3.5-5.0) g/dL Radiology Exams: Radiology Procedures Category Date Time Status KNEE (1 OR 2 VIEW) Routine Exams 12/27/24 11:31 Completed Multi-Disciplinary Progress Notes: Multi-Disciplinary Progress Notes 12/27/24 16:53 Occupational Therapy Note by Tammie (L#[id number])Jennifer OT received evaluation orders and will follow up with patient on POD #1 as appropriate. Initialized on 12/27/24 16:53 - END OF NOTE Assessment/Plan (1) Status post total left knee replacement Current Visit: Yes Status: Acute Code(s): Z96.652 - PRESENCE OF LEFT ARTIFICIAL KNEE JOINT (2) Essential (primary) hypertension Current Visit: No Status: Acute Code(s): I10 - ESSENTIAL (PRIMARY) HYPERTENSION (3) Hypothyroidism Current Visit: No Status: Chronic Code(s): E03.9 - HYPOTHYROIDISM, UNSPECIFIED (4) Hyperlipidemia Current Visit: Yes Status: Chronic Assessment & Plan: (1) Status post total left knee replacement Current Visit: Yes Status: Acute Assessment & Plan: - POD #1 - With Ortho- Dr. Abdul - Pt wanting swing bed if possible - Narcotic pain meds PRN - Use home polar ice machine. - PT/OT eval 3/11 - POD #2 - Dr. Abdul changed Percocet to [place] - PT/OT eval - CBC, CMP reviewed Code(s): Z96.652 - PRESENCE OF LEFT ARTIFICIAL KNEE JOINT (2) Essential (primary) hypertension Current Visit: No Status: Acute Assessment & Plan: - BP elevated - Pt states she used to take BP medication prior to hip surgery then stopped by PCP after as Bp was doing well - Bp may be elevated 2:2 pain and she is refusing pain meds at this time and wants to wait. - She is refusing to be restarted on BP medication per nurse - PRN IV BP med started if needed. 3 - BP better controlled today Code(s): I10 - ESSENTIAL (PRIMARY) HYPERTENSION (3) Hypothyroidism Current Visit: No Status: Chronic Assessment & Plan: - Continue Synthroid Code(s): E03.9 - HYPOTHYROIDISM, UNSPECIFIED (4) Hyperlipidemia Current Visit: Yes Status: Chronic Assessment & Plan: - Continue statin VTE: will discuss with ortho Next of KIN: daughter D/C plan:1-2 days Code status: Full Code(s): E78.5 - HYPERLIPIDEMIA, UNSPECIFIED Code(s): E78.5 - HYPERLIPIDEMIA, UNSPECIFIED
[2024-12-29 06:02] LABS: Hematocrit 31.6 % (34.1-44.9); Hemoglobin 9.8 g/dL (11.2-15.7); Mean Cell Volume 91.3 fL (79.4-94.8); Mean Corpuscular Hemoglobin 28.3 pg (25.6-32.2); Mean Platelet Volume 10.2 fL (9.4-12.3); Platelet Count 180 x10^3/uL (182-369); Red Blood Count 3.46 x10^6/uL (3.93-5.22); Red Cell Distribution Width 14.2 % (11.7-14.4); White Blood Count 6.9 x10^3/uL (3.98-10.04)
[2024-12-29 06:34] LABS: ALBUMIN 3.4 g/dL (3.5-5.0); ANION GAP 10.4 MEQ/L (5-15); BILIRUBIN,TOTAL 0.7 mg/dL (0.2-1.3); Calcium 8.8 mg/dL (8.4-10.2); Creatinine 1 0.7 mg/dL (0.52-1.04); EST GLOMERULAR FILTRATION RATE 86.3 ML/MIN; Potassium 4.3 mmol/L (3.5-5.1); Total Protein 5.8 g/dL (6.3-8.2)
--- NOTE | 2024-12-29 08:14 | OP ---
SURGERY DATE/TIME: 12/27/2024 [id number] PREOPERATIVE DIAGNOSIS: Osteoarthritis, left knee. POSTOPERATIVE DIAGNOSIS: Osteoarthritis, left knee. PROCEDURE: Left total knee replacement arthroplasty utilizing [employer] instrumentation; size 10 narrow femoral component press-fit, size E tibial component cemented, 10 mm polyethylene tibial-bearing tray, 25 mm x 8 mm single peg inset patella cemented. SURGEON: Malachi Abdul II, DO ANESTHESIA: Spinal with block for postop pain control. DESCRIPTION OF PROCEDURE AND FINDINGS: The patient was identified and informed consent was obtained. The patient was taken to the operative suite where she was placed into the supine position on the operating table after the spinal anesthetic had been administered. Once an appropriate level of anesthesia had been obtained, a tourniquet was placed high on the left thigh. The left lower extremity was then prepped and draped in the usual sterile fashion. A standard time-out was taken. The foot was placed into the boot for the knee smiley, and the leg was exsanguinated and the tourniquet was elevated to 350 mmHg. The knee was placed in a flexed position and a standard midline incision was accomplished. Skin and subcutaneous tissue was incised. Dissection was carried out and a standard medial parapatellar incision was then accomplished with a fresh #10 blade. Upon entering the joint, grade 1 synovial fluid was encountered. At this point, a portion of the infrapatellar fat pad was excised for visualization. Z retractors were positioned medially and laterally, and at this point then portions of the medial and lateral menisci as well as the anterior cruciate ligament were excised. The knee was then flexed further and the Signature series femoral guide was placed and the appropriate dill holes were made, the distal femoral cutting block was applied and the distal femoral cut was then made. At this point, the 4-in-1 cutting block was then applied and the anterior, posterior, and chamfer cuts were then made. The wafers of bone were removed. At this portion, any remaining pieces of menisci were excised. Attention was turned to the tibia where a Hohmann was placed over the PCL and in the posterior joint. At this point, then the tibial guide was placed and held in position. The drill holes were made and a tibial cutting block was then placed into position and the proximal wafer of tibia was the removed. Trial tibial component was placed and held in position with its pins. Trial femoral component was then impacted into position. The drill holes were then made in the femur for the pegs on the permanent component. The tibial trial baseline was then applied. A 10 mm baseplate was noted to be the appropriate size to give excellent soft tissue balance in all planes of motion from full extension flexion to greater than 140 degrees. Tracking was noted to be excellent with the patella. At this point, the patellar button was milled utilizing the 25 mm patella. An 8 mm thick patella restored the preresection height. At this point, the trial patellar component was removed as was the trial femoral component and the tibial poly. The cruciate stem was then cut as the alignment was noted to be excellent for the tibia and at this point then the joint was copiously irrigated with the pulse puff ironer while the cement was being vacuum mixed. Cement was then pressed into the interstices of the tibia which was then impacted into position. Excess cement was removed during the curing process. The femoral component was then press fit into position, and with a 10 mm trial polyethylene tray, the knee was held in extension during the curing process. Patellar button was then cemented into position and held with this clamp. Again all excess cement was removed. Once the cement had fully cured, the knee was again placed through a range of motion and excellent soft tissue balance was noted in all planes of motion. At this point, the trial polyethylene tibia was then removed, the joint was irrigated with the pulse puff ironer, and the permanent tibial component was inserted and fully seated. The joint was then re-irrigated and the wound was then closed with #2 Stratafix, 2-0 Monocryl, and 3-0 Stratafix subcuticular augmented with Dermabond. An Aquacel dressing was applied. The patient was then transferred to the bed and taken to the recovery room in satisfactory condition having tolerated the procedure well.
--- NOTE | 2024-12-29 09:48 | PCM.NOTE ---
Date and Time: 12/29/24 0942 Subjective Assessment: 12/27/24 is a 84 year old female with PMHX of hyperlipidemia, glaucome, HTN, and hypothyroidism. She was admitted today post op Left total knee replacement done by ortho Dr. Abdul. She rates her pain a 6/10. She states she has been riding a stationary bike for a few weeks for an hour to prepe for this surgery so she can do well post op. She brought in her own polar ice machine for left knee and has this in place. She has already been up with PT and did well she reports. She would like a swing bed at the hospital if she has to stay for an extended period and case management aware. She denies any further concerns at this time. 12/28/24 Pt resting in bed. She had quite a bit of pain last night and overnight hospitalist called x2 for IV Dilaudid. Pt was every tearful per staff and provider. Pt states she did not get any sleep last night d/t her pain level. Discussed pt case with ortho- Dr. Abdul and he is going to change her pain meds to [place] as this has worked well for her in the past. Bp improved today. Pain well controlled this morning. Case management to determine if she qualifies for swing bed. Continue working with PT/OT. She denies any further concerns at this time. 12/29/24 Pt resting in the chair. She was able to get up and walk with OT to the bathroom and take a sponge bath. She reports doing well today and feeling better. She was able to sleep last night and pain under control with med changes made yesterday. She rated her pain 10/10 this AM but pain meds are controlling her pain to a tolerable level she reports. She denies CP, SOB, Abd. pain, N/V/D. - Review of Systems Constitutional: No Fever, No Chills Eyes: No Symptoms Ears, Nose, & Throat: No Symptoms Respiratory: No Cough, No Short Of Breath Cardiac: No Chest Pain, No Edema, No Syncope Abdominal/Gastrointestinal: No Abdominal Pain, No Nausea, No Vomiting, No Diarrhea Genitourinary Symptoms: No Dysuria Musculoskeletal: Joint Pain (Left knee), No Back Pain, No Neck Pain Skin: No Rash Neurological: No Dizziness, No Focal Weakness, No Sensory Changes Psychological: No Symptoms Endocrine: No Symptoms Hematologic/Lymphatic: No Symptoms Immunological/Allergic: No Symptoms Objective Exam General Appearance: no apparent distress, alert, obese Neurologic Exam: alert, oriented x 3, cooperative, normal mood/affect, nml cerebellar function, sensation nml, No motor deficits Skin Exam: normal color, warm, dry Wound Assessment: Skin/Wound Assessment Wound/Incision Assessment Start: 12/27/24 14:31 Text: Status: Active Freq: Q6H Protocol: Document 12/29/24 01:46 CT (Rec: 12/29/24 01:47 CT [id number]) Wound/Incision Assessment Left Knee Wound Assessment Shift Assessment Wound Type Incision Dressing Status Dry & Intact Drainage Amount None Drainage Odor None/Absent Eye Exam: PERRL, EOMI, eyes nml inspection Ears, Nose, Throat Exam: normal ENT inspection, pharynx normal, moist mucous membranes Neck Exam: normal inspection, non-tender, supple, full range of motion Respiratory Exam: normal breath sounds, lungs clear, No respiratory distress Cardiovascular Exam: regular rate/rhythm, normal heart sounds Gastrointestinal/Abdomen Exam: soft, No tenderness, No mass Extremity Exam: normal inspection, normal range of motion, tenderness (Left knee) Back Exam: normal inspection, normal range of motion, No CVA tenderness, No vertebral tenderness Pelvic Exam: deferred Rectal Exam: deferred Objective Data Vital Signs: Vital Signs - 24 hr Temp Pulse Resp BP Pulse Ox 12/29/24 08:00 97.3 F 111 H 18 128/60 96 12/29/24 04:00 97.8 F 88 20 142/63 96 12/29/24 00:00 97.4 F 88 18 134/52 97 12/28/24 20:00 97.3 F 101 H 18 135/62 97 12/28/24 16:00 98 F 90 17 145/65 96 12/28/24 12:00 97.9 F 101 H 17 132/59 98 Pain Assessment - Last Documented Pain Intensity [Left] 2 Pain Intensity [Left Knee] 4 Pain Intensity 10 Pain Scale Used 0-10 Pain Scale Intake and Output: Intake & Output 12/26/24 12/27/24 12/28/24 12/29/24 11:59 11:59 11:59 11:59 Intake Total 1200 620 Balance 1200 620 Weight 82.1 kg 178 kg Lab Results: Lab Results-Last 24 Hours 12/29/24 12/29/24 Range/Units 05:52 05:52 WBC 6.9 (3.98-10.04) x10^3/uL RBC 3.46 L (3.93-5.22) x10^6/uL Hgb 9.8 L (11.2-15.7) g/dL Hct 31.6 L (34.1-44.9) % MCV 91.3 (79.4-94.8) fL MCH 28.3 (25.6-32.2) pg MCHC 31.0 L (32.2-35.5) g/dL RDW 14.2 (11.7-14.4) % Plt Count 180 L (182-369) x10^3/uL MPV 10.2 (9.4-12.3) fL Sodium 136 (135-145) mmol/L Potassium 4.3 (3.5-5.1) mmol/L Chloride 102 (98-107) mmol/L Carbon Dioxide 29 (22-30) mmol/L Anion Gap 10.4 (5-15) MEQ/L BUN 16 (7-17) mg/dL Creatinine 0.70 (0.52-1.04) mg/dL Estimated GFR 86.3 ML/MIN Glucose 112 H (74-106) mg/dL Calcium 8.8 (8.4-10.2) mg/dL Total Bilirubin 0.70 (0.2-1.3) mg/dL AST 24 (14-36) U/L ALT 14 (0-35) U/L Alkaline Phosphatase 73 (38-126) U/L Serum Total Protein 5.8 L (6.3-8.2) g/dL Albumin 3.4 L (3.5-5.0) g/dL Radiology Exams: Radiology Procedures Category Date Time Status KNEE (1 OR 2 VIEW) Routine Exams 12/27/24 11:31 Completed Assessment/Plan (1) Status post total left knee replacement Current Visit: Yes Status: Acute Code(s): Z96.652 - PRESENCE OF LEFT ARTIFICIAL KNEE JOINT (2) Essential (primary) hypertension Current Visit: No Status: Acute Code(s): I10 - ESSENTIAL (PRIMARY) HYPERTENSION (3) Hypothyroidism Current Visit: No Status: Chronic Code(s): E03.9 - HYPOTHYROIDISM, UNSPECIFIED (4) Hyperlipidemia Current Visit: Yes Status: Chronic Assessment & Plan: (1) Status post total left knee replacement Current Visit: Yes Status: Acute Assessment & Plan: - POD #1 - With Ortho- Dr. Abdul - Pt wanting swing bed if possible - Narcotic pain meds PRN - Use home polar ice machine. - PT/OT eval 3/11 - POD #2 - Dr. Abdul changed Percocet to [place] - PT/OT eval - CBC, CMP reviewed 312 - POD #3 - Pain well controlled with med changes yesterday - PT/OT eval - CBC, CMP reviewed Code(s): Z96.652 - PRESENCE OF LEFT ARTIFICIAL KNEE JOINT (2) Essential (primary) hypertension Current Visit: No Status: Acute Assessment & Plan: - BP elevated - Pt states she used to take BP medication prior to hip surgery then stopped by PCP after as Bp was doing well - Bp may be elevated 2:2 pain and she is refusing pain meds at this time and wants to wait. - She is refusing to be restarted on BP medication per nurse - PRN IV BP med started if needed. 311 - BP better controlled today Code(s): I10 - ESSENTIAL (PRIMARY) HYPERTENSION (3) Hypothyroidism Current Visit: No Status: Chronic Assessment & Plan: - Continue Synthroid Code(s): E03.9 - HYPOTHYROIDISM, UNSPECIFIED (4) Hyperlipidemia Current Visit: Yes Status: Chronic Assessment & Plan: - Continue statin VTE: not needed- walking Next of KIN: daughter D/C plan: today or tomorrow- depending insurance Code status: Full Code(s): E78.5 - HYPERLIPIDEMIA, UNSPECIFIED Code(s): E78.5 - HYPERLIPIDEMIA, UNSPECIFIED
[2024-12-29 11:41] VITALS: BP 153/72; PULSE 102; RESP 20; TEMP 97.8; O2SAT 99
[2024-12-29] MEDS: ULTRAM 50 MG PO PRN (12:17)
--- NOTE | 2024-12-29 13:05 | PCM.DS ---
Discharge Summary Date of Admission: 12/27/24 06:10 Date of Discharge: 12/29/24 Admitting Physician: JANINE ROLLINS MD Consults: Consults on Case 12/27/24 16:35 Consult Ortho ROUTINE Primary Care Provider: SEYMOUR COSBY Allergies Allergies No Known Drug Allergies Allergy (Verified 12/27/24 13:03) Hospital Summary - Hospital Course Hospital Course: 12/27/24 is a 84 year old female with PMHX of hyperlipidemia, glaucome, HTN, and hypothyroidism. She was admitted today post op Left total knee replacement done by ortho Dr. Abdul. She rates her pain a 6/10. She states she has been riding a stationary bike for a few weeks for an hour to prepe for this surgery so she can do well post op. She brought in her own polar ice machine for left knee and has this in place. She has already been up with PT and did well she reports. She would like a swing bed at the hospital if she has to stay for an extended period and case management aware. She denies any further concerns at this time. 12/28/24 Pt resting in bed. She had quite a bit of pain last night and overnight hospitalist called x2 for IV Dilaudid. Pt was every tearful per staff and provider. Pt states she did not get any sleep last night d/t her pain level. Discussed pt case with ortho- Dr. Abdul and he is going to change her pain meds to [place] as this has worked well for her in the past. Bp improved today. Pain well controlled this morning. Case management to determine if she qualifies for swing bed. Continue working with PT/OT. She denies any further concerns at this time. 12/29/24 Pt resting in the chair. She was able to get up and walk with OT to the bathroom and take a sponge bath. She reports doing well today and feeling better. She was able to sleep last night and pain under control with med changes made yesterday. She rated her pain 10/10 this AM but pain meds are controlling her pain to a tolerable level she reports. She denies CP, SOB, Abd. pain, N/V/D. Plan is to d/c to swing bed for 2 days starting today- as insurance has approved this and pt is agreeable. - Vitals & Intake/Output Vital Signs: Vital Signs Temperature 97.8 F 12/29/24 11:41 Pulse Rate 102 H 12/29/24 11:41 Respiratory Rate 20 12/29/24 11:41 Blood Pressure 153/72 12/29/24 11:41 O2 Sat by Pulse Oximetry 99 12/29/24 11:41 Intake & Output: Intake & Output 12/27/24 12/28/24 12/29/24 12/30/24 11:59 11:59 11:59 11:59 Intake Total 1200 620 Balance 1200 620 Weight 82.1 kg 178 kg - Lab Result Diagrams: 12/29/24 05:52 12/29/24 05:52 Lab Results-Last 24 Hrs: Lab Results-Last 24 Hours 12/29/24 12/29/24 Range/Units 05:52 05:52 WBC 6.9 (3.98-10.04) x10^3/uL RBC 3.46 L (3.93-5.22) x10^6/uL Hgb 9.8 L (11.2-15.7) g/dL Hct 31.6 L (34.1-44.9) % MCV 91.3 (79.4-94.8) fL MCH 28.3 (25.6-32.2) pg MCHC 31.0 L (32.2-35.5) g/dL RDW 14.2 (11.7-14.4) % Plt Count 180 L (182-369) x10^3/uL MPV 10.2 (9.4-12.3) fL Sodium 136 (135-145) mmol/L Potassium 4.3 (3.5-5.1) mmol/L Chloride 102 (98-107) mmol/L Carbon Dioxide 29 (22-30) mmol/L Anion Gap 10.4 (5-15) MEQ/L BUN 16 (7-17) mg/dL Creatinine 0.70 (0.52-1.04) mg/dL Estimated GFR 86.3 ML/MIN Glucose 112 H (74-106) mg/dL Calcium 8.8 (8.4-10.2) mg/dL Total Bilirubin 0.70 (0.2-1.3) mg/dL AST 24 (14-36) U/L ALT 14 (0-35) U/L Alkaline Phosphatase 73 (38-126) U/L Serum Total Protein 5.8 L (6.3-8.2) g/dL Albumin 3.4 L (3.5-5.0) g/dL - Procedures and Test Procedures and Tests throughout Hospitalization: Therapy Orders & Screens 12/27/24 13:15 PT Eval & Treat ( Order) ONCE Reason for Eval:: Std TKRA Rehab Diagnosis: osteoarthritis left knee Incentive Spirometry UD Comment: Diagnosis: osteoarthritis left knee OT Eval and Treat ( Order) ONCE Comment: Physician Instructions: Reason For Exam: TKRA ADL'S Evaluate: Yes Treat: Yes Reason for Evaluation: TKRA ADL'S Diagnosis: osteoarthritis left knee Discharge Exam General Appearance: no apparent distress, alert Neurologic Exam: alert, oriented x 3, cooperative, normal mood/affect, nml cerebellar function, sensation nml, No motor deficits Eye Exam: PERRL, EOMI, eyes nml inspection Ears, Nose, Throat Exam: normal ENT inspection, pharynx normal, moist mucous membranes Neck Exam: normal inspection, non-tender, supple, full range of motion Respiratory Exam: normal breath sounds, lungs clear, No respiratory distress Cardiovascular Exam: regular rate/rhythm, normal heart sounds Gastrointestinal/Abdomen Exam: soft, No tenderness, No mass Pelvic Exam: deferred Rectal Exam: deferred Back Exam: normal inspection, normal range of motion, No CVA tenderness, No vertebral tenderness Extremity Exam: normal inspection, normal range of motion, tenderness (Left knee) Skin Exam: normal color, warm, dry Wound Assessment: Skin/Wound Assessment Wound/Incision Assessment Start: 12/27/24 14:31 Text: Status: Active Freq: Q6H Protocol: Document 12/29/24 08:00 KX (Rec: 12/29/24 10:16 KX [id number]) Wound/Incision Assessment Left Knee Wound Assessment Shift Assessment Wound Type Incision Dressing Status Dry & Intact Drainage Amount None Drainage Odor None/Absent Wound Photo Photo Taken No Final Diagnosis/Problem List - Final Discharge Diagnosis/Problem (1) Status post total left knee replacement Current Visit: Yes Status: Acute Code(s): Z96.652 - PRESENCE OF LEFT ARTIFICIAL KNEE JOINT (2) Essential (primary) hypertension Current Visit: No Status: Acute Code(s): I10 - ESSENTIAL (PRIMARY) HYPERTENSION (3) Hypothyroidism Current Visit: No Status: Chronic Code(s): E03.9 - HYPOTHYROIDISM, UNSPECIFIED (4) Hyperlipidemia Current Visit: Yes Status: Chronic Assessment & Plan: (1) Status post total left knee replacement Current Visit: Yes Status: Acute Assessment & Plan: - POD #1 - With Ortho- Dr. Abdul - Pt wanting swing bed if possible - Narcotic pain meds PRN - Use home polar ice machine. - PT/OT eval 3/11 - POD #2 - Dr. Abdul changed Percocet to [place] - PT/OT eval - CBC, CMP reviewed 3/12 - POD #3 - Pain well controlled with med changes yesterday - PT/OT eval - CBC, CMP reviewed - per ortho start ASA daily - Change to swing bed today as insurance approved Code(s): Z96.652 - PRESENCE OF LEFT ARTIFICIAL KNEE JOINT (2) Essential (primary) hypertension Current Visit: No Status: Acute Assessment & Plan: - BP elevated - Pt states she used to take BP medication prior to hip surgery then stopped by PCP after as Bp was doing well - Bp may be elevated 2:2 pain and she is refusing pain meds at this time and wants to wait. - She is refusing to be restarted on BP medication per nurse - PRN IV BP med started if needed. 3/11 - BP better controlled today Code(s): I10 - ESSENTIAL (PRIMARY) HYPERTENSION (3) Hypothyroidism Current Visit: No Status: Chronic Assessment & Plan: - Continue Synthroid Code(s): E03.9 - HYPOTHYROIDISM, UNSPECIFIED (4) Hyperlipidemia Current Visit: Yes Status: Chronic Assessment & Plan: - Continue statin Code(s): E78.5 - HYPERLIPIDEMIA, UNSPECIFIED Code(s): E78.5 - HYPERLIPIDEMIA, UNSPECIFIED - Discharge Discharge Date: 12/29/24 (swing bed) Disposition: XFER OTHER Condition: Stable Prescriptions: New Hydrocodone/Acetaminophen [Hydrocodone-Acetamin 5-325 mg] 1 - 2 tab PO Q4HPRN PRN #24 tablet MDD 6 PRN Reason: Pain HydrALAzine HCL 20 MG INJ [Apresoline 20 mg/ml Inj] 10 mg IV Q4H PRN PRN PRN Reason: Hypertension Hydromorphone 1 mg/1Ml Inj [Hydromorphone 1 mg/ml Injection] 0.2 mg IV Q3H PRN PRN PRN Reason: BREAKTHROUGH PAIN Naloxone HCl 0.4 mg/ml [Narcan 0.4 MG/ML] 0.4 mg IV PRN PRN PRN Reason: Respiratory Depression Hydrocodone/Acetaminophen [[place] 10-325 mg] 1 tablet PO Q4H PRN PRN tablet PRN Reason: Pain Continue Levothyroxine Sodium 50 mcg PO DAILY Latanoprost [Xalatan] 1 ml OP HS Vit C/E/Zn/Coppr/Lutein/Zeaxan [Preservision Areds 2 Chew Tab] 1 each PO DAILY Gabapentin 300 mg PO DAILY Rosuvastatin Calcium 10 mg PO DAILY Aspirin EC 325 mg [Ecotrin 325 MG] 325 mg PO DAILY 14 Days #14 tablet Ferrous Sulfate 325 mg [Feosol 325 mg] 325 mg PO DAILY 30 Days #30 tablet Naloxone HCl [Narcan] See Rx Instructions .ROUTE .COMPLEX 30 Days #1 kit Hydrocodone/Acetaminophen [[place] 10-325 mg] 1 tablet PO Q6H PRN 3 Days #12 tablet MDD 4 PRN Reason: Pain Tramadol HCl 50 mg [Ultram 50 mg] 50 mg PO UD Escitalopram Oxalate [Lexapro] 10 mg PO UD Cyclobenzaprine HCl 10 mg [Cyclobenzaprine 10 MG] 10 mg PO UD Ubidecarenone/Vit E/Vit E Mix [Co-Enzyme Q10 100 mg Softgel] 1 each PO UD Loratadine 10 mg [Claritin 10 mg] 10 mg PO UD Oxycodone HCl/Acetaminophen [Percocet 5-325 mg Tablet] 1 mg PO Q4-6HPRN PRN #24 tablet MDD 8 PRN Reason: Pain Follow up with: SEYMOUR COSBY [Primary Care Provider] - 01/04/25 9:30 am LAURYN BUSH NP [NON-STAFF PHY W/O PRIVILEGES] - 01/17/25 10:00 am
== END 2024-12-29 13:00 ==
LOC: MED SURG 06:10 → SDC 06:10 → MED SURG 11:55 → EDSTATUS 12:49
PROVIDERS: ADMIT Internal Medicine; ATTEND Internal Medicine
DX: M17.12 Unilateral primary osteoarthritis, left knee (principal); M25.562 Pain in left knee; E78.5 Hyperlipidemia, unspecified; I10 Essential (primary) hypertension; E03.9 Hypothyroidism, unspecified; Z79.899 Other long term (current) drug therapy
CPT/HCPCS: 27447; 36415; 73560; 76937; 80053; 85027; 97110; 97161; 97165; 97530; 97535; C1776; Q3014; 93268; J0171; J0690; J1171; J2250; J2704; J3010; J3370; A9270-GY; G0378

== ENCOUNTER 2024-12-29 12:06 | Inpatient (IN) | payer MEDICARE ==
[2024-12-29] MEDS ORDERED: Aplisol ID ONE (13:19)
[2024-12-29] MEDS ORDERED: MEDICATION INTERVENTION MC SCH ×5 (13:19)
[2024-12-29] MEDS ORDERED: Narcan 0.4 MG/ML IV PRN (13:19)
[2024-12-29] MEDS ORDERED: APRESOLINE 20 MG/ML INJ IV PRN (13:19)
[2024-12-29] MEDS ORDERED: Hydromorphone 1 mg/ml Injection IV PRN (13:19)
--- NOTE | 2024-12-29 15:10 | PCM.SB.HP ---
Swing Bed H&P - Acute Care H&P in SB Record Acute H&P in Swing Bed Medical Record & valid with no change: Yes - Acute Care H&P Revisions as follows Physical Exam Changes: 12/27/24 is a 84 year old female with PMHX of hyperlipidemia, glaucome, HTN, and hypothyroidism. She was admitted today post op Left total knee replacement done by camilla Abdul. She rates her pain a 6/10. She states she has been riding a stationary bike for a few weeks for an hour to prepe for this surgery so she can do well post op. She brought in her own polar ice machine for left knee and has this in place. She has already been up with PT and did well she reports. She would like a swing bed at the hospital if she has to stay for an extended period and case management aware. She denies any further concerns at this time. 12/28/24 Pt resting in bed. She had quite a bit of pain last night and overnight hospitalist called x2 for IV Dilaudid. Pt was every tearful per staff and provider. Pt states she did not get any sleep last night d/t her pain level. Discussed pt case with camilla- Dr. Abdul and he is going to change her pain meds to [place] as this has worked well for her in the past. Bp improved today. Pain well controlled this morning. Case management to determine if she qualifies for swing bed. Continue working with PT/OT. She denies any further concerns at this time. 12/29/24 Pt resting in the chair. She was able to get up and walk with OT to the bathroom and take a sponge bath. She reports doing well today and feeling better. She was able to sleep last night and pain under control with med changes made yesterday. She rated her pain 10/10 this AM but pain meds are controlling her pain to a tolerable level she reports. She denies CP, SOB, Abd. pain, N/V/D. Plan is to d/c to swing bed for 2 days starting today- as insurance has approved this and pt is agreeable. (1) Status post total left knee replacement Current Visit: Yes Status: Acute Assessment & Plan: - POD #1 - With Shannon Abdul - Pt wanting swing bed if possible - Narcotic pain meds PRN - Use home polar ice machine. - PT/OT eval 3 - POD #2 - Dr. Abdul changed Percocet to [place] - PT/OT eval - CBC, CMP reviewed 312 - POD #3 - Pain well controlled with med changes yesterday - PT/OT eval - CBC, CMP reviewed - per ortho start ASA daily - Change to swing bed today as insurance approved Code(s): Z96.652 - PRESENCE OF LEFT ARTIFICIAL KNEE JOINT (2) Essential (primary) hypertension Current Visit: No Status: Acute Assessment & Plan: - BP elevated - Pt states she used to take BP medication prior to hip surgery then stopped by PCP after as Bp was doing well - Bp may be elevated 2:2 pain and she is refusing pain meds at this time and wants to wait. - She is refusing to be restarted on BP medication per nurse - PRN IV BP med started if needed. 3 - BP better controlled today Code(s): I10 - ESSENTIAL (PRIMARY) HYPERTENSION (3) Hypothyroidism Current Visit: No Status: Chronic Assessment & Plan: - Continue Synthroid Code(s): E03.9 - HYPOTHYROIDISM, UNSPECIFIED (4) Hyperlipidemia Current Visit: Yes Status: Chronic Assessment & Plan: - Continue statin Code(s): E78.5 - HYPERLIPIDEMIA, UNSPECIFIED General Appearance: no apparent distress Neurologic: alert, oriented x 3, cooperative, normal mood/affect, nml cerebellar function, nml station & gait, sensation nml Eye Exam: PERRL/EOMI, eyes nml inspection Ears, Nose, Throat Exam: normal ENT inspection, pharynx normal, moist mucous me mbranes Neck Exam: normal inspection, non-tender, supple, full range of motion Respiratory: normal breath sounds, lungs clear, No respiratory distress Cardiovascular: regular rate/rhythm, normal heart sounds, normal peripheral pulses Gastrointestinal: soft, normal bowel sounds, No tenderness, No mass Back Exam: normal inspection, normal range of motion, No CVA tenderness, No vertebral tenderness Extremity Exam: normal inspection, normal range of motion, tenderness (left knee) Skin Exam: normal color, warm, dry, No rash Lymphatic: No adenopathy - Acute Care ROS Revisions Constitutional: No Fever, No Chills Eyes (ROS): No Symptoms Ears, Nose, & Throat: No Symptoms Respiratory: No Cough, No Short Of Breath Cardiac: No Chest Pain, No Edema Abdominal/Gastrointestinal: No Abdominal Pain, No Nausea, No Vomiting, No Diarrhea Genitourinary Symptoms: No Dysuria Genitourinary Symptoms: No Dysuria Musculoskeletal: Joint Pain (left knee), No Back Pain, No Neck Pain Skin: No Rash Neurological: No Dizziness, No Focal Weakness Psychological: No Symptoms Endocrine: No Symptoms Hematologic/Lymphatic: No Symptoms Immunological/Allergic: No Symptoms
[2024-12-29] MEDS: NORCO 10-325 MG PO PRN (17:50)
[2024-12-30 05:42] LABS: Hematocrit 27.1 % (34.1-44.9); Hemoglobin 8.4 g/dL (11.2-15.7); Mean Cell Volume 91.6 fL (79.4-94.8); Mean Corpuscular Hemoglobin 28.4 pg (25.6-32.2); Mean Platelet Volume 10.2 fL (9.4-12.3); Platelet Count 186 x10^3/uL (182-369); Red Blood Count 2.96 x10^6/uL (3.93-5.22); Red Cell Distribution Width 14.2 % (11.7-14.4); White Blood Count 5.4 x10^3/uL (3.98-10.04)
[2024-12-30 06:02] LABS: ALBUMIN 3.1 g/dL (3.5-5.0); ANION GAP 11.8 MEQ/L (5-15); BILIRUBIN,TOTAL 0.5 mg/dL (0.2-1.3); Calcium 8.6 mg/dL (8.4-10.2); Creatinine 1 0.74 mg/dL (0.52-1.04); EST GLOMERULAR FILTRATION RATE 80.7 ML/MIN; Potassium 4.2 mmol/L (3.5-5.1); Total Protein 5.6 g/dL (6.3-8.2)
[2024-12-30] MEDS: ULTRAM 50 MG PO PRN (09:13)
[2024-12-30] MEDS: CLARITIN 10 MG PO SCH (10:43)
[2024-12-30] MEDS: ZOCOR 20MG PO SCH (10:43)
[2024-12-30] MEDS: Ocuvite Tablet PO SCH (10:43)
[2024-12-30] MEDS: SYNTHROID 50 MCG PO SCH (10:43)
[2024-12-30] MEDS: Ecotrin 325 MG PO SCH (10:43)
[2024-12-30] MEDS: NEURONTIN PO SCH (10:43)
[2024-12-30] MEDS: FEOSOL 325 MG PO SCH (10:43)
[2024-12-30] MEDS: Aplisol ID SCH (10:53)
[2024-12-30] MEDS ORDERED: Cyclobenzaprine 10 MG PO PRN (16:26)
[2024-12-30] MEDS: Lexapro PO SCH (17:18)
[2024-12-30 20:25] VITALS: PULSE 104; RESP 22
[2024-12-30] MEDS: Xalatan OP SCH (20:40)
[2024-12-30] MEDS: BENADRYL 25 MG CAPSULE PO PRN (20:49)
[2024-12-31 08:31] VITALS: BP 130/76; TEMP 97.2; O2SAT 94
--- NOTE | 2024-12-31 09:51 | PCM.DS ---
Discharge Summary Date of Admission: 12/29/24 13:00 Date of Discharge: 12/31/24 Admitting Physician: JANINE ROLLINS MD Primary Care Provider: SEYMOUR COSBY Allergies Allergies No Known Drug Allergies Allergy (Verified 12/27/24 13:03) Hospital Summary - Hospital Course Hospital Course: 12/27/24 is a 84 year old female with PMHX of hyperlipidemia, glaucome, HTN, and hypothyroidism. She was admitted today post op Left total knee replacement done by ortho Dr. Abdul. She rates her pain a 6/10. She states she has been riding a stationary bike for a few weeks for an hour to prepe for this surgery so she can do well post op. She brought in her own polar ice machine for left knee and has this in place. She has already been up with PT and did well she reports. She would like a swing bed at the hospital if she has to stay for an extended period and case management aware. She denies any further concerns at this time. 12/28/24 Pt resting in bed. She had quite a bit of pain last night and overnight hospitalist called x2 for IV Dilaudid. Pt was every tearful per staff and provider. Pt states she did not get any sleep last night d/t her pain level. Discussed pt case with ortho- Dr. Abdul and he is going to change her pain meds to [place] as this has worked well for her in the past. Bp improved today. Pain well controlled this morning. Case management to determine if she qualifies for swing bed. Continue working with PT/OT. She denies any further concerns at this time. 12/29/24 Pt resting in the chair. She was able to get up and walk with OT to the bathroom and take a sponge bath. She reports doing well today and feeling better. She was able to sleep last night and pain under control with med changes made yesterday. She rated her pain 10/10 this AM but pain meds are controlling her pain to a tolerable level she reports. She denies CP, SOB, Abd. pain, N/V/D. Plan is to d/c to swing bed for 2 days starting today- as insurance has approved this and pt is agreeable. 12/31/24 Pt feeling much better and doing well. She is ready to d/c today. Pain is well controlled and she is doing well with PT. Scripts sent in by ortho. She denies any further concerns at this time. - Vitals & Intake/Output Vital Signs: Vital Signs Temperature 97.2 F 12/31/24 08:00 Pulse Rate 104 H 12/31/24 08:00 Respiratory Rate 22 12/31/24 08:00 Blood Pressure 130/76 12/31/24 08:00 O2 Sat by Pulse Oximetry 94 L 12/31/24 08:00 Intake & Output: Intake & Output 12/28/24 12/29/24 12/30/24 12/31/24 11:59 11:59 11:59 11:59 Intake Total 540 480 Balance 540 480 - Lab Result Diagrams: 12/30/24 05:34 12/30/24 05:34 - Procedures and Test Procedures and Tests throughout Hospitalization: Therapy Orders & Screens 12/29/24 13:19 PT Eval & Treat ( Order) ONCE Reason for Eval:: S/P TOTAL KNEE REPLACEMENT Diagnosis: Total left knee replacement OT Eval and Treat (MD Order) ONCE Comment: Physician Instructions: Reason For Exam: TKRA ADL'S Evaluate: Yes Treat: Yes Reason for Evaluation: TKRA ADL'S Diagnosis: osteoarthritis left knee 12/29/24 16:27 PT Clarification Order ROUTINE Comment: Physician Instructions: Reason For Exam: PT Clarification: P.T. TO TX 5X/WK TO ADDRESS L KNEE POST-OP PN, FUNCTIONAL MOBILITY AND GAIT TRAINING WELL BALANCE ACTIVITIES AND PT. ED. RE: HEP AND SAFETY AWARENESS AND PN/INFLAMMATION MG'T TO MAXIMIZE FUNCTIONAL INDEPENDENCE FOR SAFE RETURN HOME. Discharge Exam General Appearance: no apparent distress, alert Neurologic Exam: alert, oriented x 3, cooperative, normal mood/affect, nml cerebellar function, sensation nml, No motor deficits Eye Exam: PERRL, EOMI, eyes nml inspection Ears, Nose, Throat Exam: normal ENT inspection, pharynx normal, moist mucous membranes Neck Exam: normal inspection, non-tender, supple, full range of motion Respiratory Exam: normal breath sounds, lungs clear, No respiratory distress Cardiovascular Exam: regular rate/rhythm, normal heart sounds Gastrointestinal/Abdomen Exam: soft, No tenderness, No mass Pelvic Exam: deferred Rectal Exam: deferred Back Exam: normal inspection, normal range of motion, No CVA tenderness, No vertebral tenderness Extremity Exam: normal inspection, normal range of motion, tenderness (right knee from TKR) Skin Exam: normal color, warm, dry Final Diagnosis/Problem List - Final Discharge Diagnosis/Problem (1) Status post total left knee replacement Current Visit: No Status: Acute Code(s): Z96.652 - PRESENCE OF LEFT ARTIFICIAL KNEE JOINT (2) HTN (hypertension) Current Visit: No Status: Chronic Code(s): I10 - ESSENTIAL (PRIMARY) HY PERTENSION (3) Hypothyroidism Current Visit: No Status: Chronic Code(s): E03.9 - HYPOTHYROIDISM, UNSPECI FIED (4) Hyperlipidemia Current Visit: No Status: Chronic Assessment & Plan: (1) Status post total left knee replacement Current Visit: Yes Status: Acute Assessment & Plan: - POD #1 - With Ortho- Dr. Abdul - Pt wanting swing bed if possible - Narcotic pain meds PRN - Use home polar ice machine. - PT/OT eval 3/ - POD #2 - Dr. Abdul changed Percocet to [place] - PT/OT eval - CBC, CMP reviewed 3 - POD #3 - Pain well controlled with med changes yesterday - PT/OT eval - CBC, CMP reviewed - per ortho start ASA daily - Change to swing bed today as insurance approved 12/31 - POD #5 - Pain well controlled - D/C today- ok per ortho Code(s): Z96.652 - PRESENCE OF LEFT ARTIFICIAL KNEE JOINT (2) Essential (primary) hypertension Current Visit: No Status: Acute Assessment & Plan: - BP elevated - Pt states she used to take BP medication prior to hip surgery then stopped by PCP after as Bp was doing well - Bp may be elevated 2:2 pain and she is refusing pain meds at this time and wants to wait. - She is refusing to be restarted on BP medication per nurse - PRN IV BP med started if needed. 12/28 - BP better controlled today 12/31 - BP controlled Code(s): I10 - ESSENTIAL (PRIMARY) HYPERTENSION (3) Hypothyroidism Current Visit: No Status: Chronic Assessment & Plan: - Continue Synthroid Code(s): E03.9 - HYPOTHYROIDISM, UNSPECIFIED (4) Hyperlipidemia Current Visit: Yes Status: Chronic Assessment & Plan: - Continue statin Code(s): E78.5 - HYPERLIPIDEMIA, UNSPECIFIED - Discharge Discharge Date: 12/31/24 Disposition: Home, Self-Care Condition: Stable Prescriptions: Continue Levothyroxine Sodium 50 mcg PO DAILY Latanoprost [Xalatan] 1 ml OP HS Vit C/E/Zn/Coppr/Lutein/Zeaxan [Preservision Areds 2 Chew Tab] 1 each PO DAILY Gabapentin 300 mg PO DAILY Rosuvastatin Calcium 10 mg PO HS Aspirin EC 325 mg [Ecotrin 325 MG] 325 mg PO DAILY 14 Days #14 tablet Ferrous Sulfate 325 mg [Feosol 325 mg] 325 mg PO DAILY 30 Days #30 tablet Tramadol HCl 50 mg [Ultram 50 mg] 50 mg PO Q6HPRN PRN PRN Reason: Pain Escitalopram Oxalate [Lexapro] 10 mg PO DAILY Cyclobenzaprine HCl 10 mg [Cyclobenzaprine 10 MG] 10 mg PO DAILY PRN PRN PRN Reason: Muscle Spasms Ubidecarenone/Vit E/Vit E Mix [Co-Enzyme Q10 100 mg Softgel] 1 each PO DAILY Loratadine 10 mg [Claritin 10 mg] 10 mg PO DAILY Hydrocodone/Acetaminophen [Hydrocodone-Acetamin 5-325 mg] 1 - 2 tab PO Q4HPRN PRN #24 tablet MDD 6 PRN Reason: Pain Additional Instructions: WEIGHT BEARING TOLERATED WITH WALKER FOLLOW KNEE PRECAUTIONS CONTINUE ASPIRIN X 4 WEEKS LEAVE DRESSING INTACT (WILL BE REMOVED AT F/U APT.), MAY SHOWER [facility] HAS BEEN SET UP FOR YOU. THEY WILL CALL YOU TO ARRANGE A TIME TO COME SEE YOU. THEIR PHONE NUMBER IS [phone] IF YOU NEED ANYTHING BEFORE THEIR FIRST VISIT Follow up with: SEYMOUR COSBY [Primary Care Provider] - 01/04/25 9:30 am CHECO ABDUL DO [ACTIVE STAFF] - 01/17/25 10:00 am
[2025-01-10] MEDS ORDERED: Aplisol ID SCH (10:00)
== END 2024-12-31 17:49 | disposition home health service (06) | DRG 556 ==
LOC: MED SURG 13:00
PROVIDERS: ADMIT Internal Medicine; ATTEND Internal Medicine
DX: M25.562 Pain in left knee (principal); I10 Essential (primary) hypertension; E03.9 Hypothyroidism, unspecified; E78.5 Hyperlipidemia, unspecified; Z79.899 Other long term (current) drug therapy
CPT/HCPCS: 36415; 80053; 82947; 85027; 97110-GP; A9270-GY